=== PATIENT | male | born 1940 | race African-American/Black ===

== ENCOUNTER 2017-08-23 15:55 | Inpatient (IN) ==
[2017-08-23] MEDS ORDERED: SODIUM CHLORIDE 0.9% 1,000 ML IV STA (16:15)
[2017-08-23 16:23] LABS: Basophils % 0.4 % (0.0-0.8); Eosinophils # 0.1 10*3/uL (0.0-0.87); Eosinophils % 2.5 % (0.00-10.9); Hematocrit 39.4 VOL% (42.0-52.0); Hemoglobin 12.6 GM/DL (14.0-18.0); Immature Granulocytes % 0.5 %; Immature Granulocytes Absolute 0.03 #; Lymphocytes # 2.1 10*3/uL (1.4-4.0); Lymphocytes % 36.7 % (21.2-54.2); Mean Corpuscular Hemoglobin 25 PG (27-34); Mean Corpuscular Volume 79.3 FL (87-102); Monocytes # 0.6 10*3/uL (0.11-0.8); Monocytes % 10.8 % (1.7-12.7); Neutrophils # 2.8 10*3/uL (1.4-7.4); Neutrophils % 49.1 % (38.7-73.9); Platelet Count 132 T/CUMM (130-400); Red Blood Count 4.97 MC/CUMM (3.8-5.5); Red Cell Distribution Width 18.4 % (9.3-17.3); White Blood Count 5.6 T/CUMM (4-12)
[2017-08-23 16:35] LABS: Alanine Aminotransferase 12 U/L (16-61); Albumin 3.7 G/DL (3.4-5.0); Alkaline Phosphatase 94 U/L (45-117); Aspartate Amino Transferase 25 U/L (0-37); Bilirubin,Total < 0.39 MG/DL (0.2-1.0); Blood Urea Nitrogen 51 MG/DL (7-18); Calcium 8.7 MG/DL (8.5-10.1); Glucose 94 MG/DL (74-106); Osmolality,Calculated 288.7 MOS/KG (273-304); Potassium 5.3 MMOL/L (3.5-5.1); Sodium 138 MMOL/L (136-145); Total Protein 7.3 G/DL (6.4-8.3)
[2017-08-23 19:10] LABS: Apearance,Urine CLEAR (Clear); Bacteria,Urine Occasional /HPF (Few); Bilirubin,Urine Negative (Negative); Blood, Urine Negative (Negative); Glucose,Urine (UA) Negative (Negative); Hyaline Casts,Urine 1 /LPF (0-3); Ketones,Urine Negative (Negative); Mucus,Urine Occasional /LPF (Occasional); Nitrite,Urine Negative (Negative); Protein,Urine Negative; RBC,Urine <1 /HPF (0-4); Sperm,Urine Occasional /HPF (Negative); Urine Color Yellow (Yellow); Urine Specific Gravity 1.008 (1.001-1.035); Urine Urobilinogen < 2.0 EU/DL (0.2-1.0); WBC,Urine <1 /HPF (0-6)
[2017-08-23 19:19] LABS: Barbiturates Screen,Urine Negative (Negative); Benzodiazepines Screen,Urine Negative (Negative); Cannabinoid Screen,Urine Negative (Negative); Opiate Screen,Urine Positive (Negative); Phencyclidine Screen,Urine Negative (Negative)
[2017-08-23] MEDS ORDERED: SODIUM POLYSTYRENE SULFATE 15 GM/60 ML BOTTLE PO STA (19:45)
[2017-08-23] MEDS ORDERED: DEXTROSE 50% 25 GM/50 ML VIAL IV PRN (19:48)
[2017-08-23] MEDS ORDERED: GLUCAGON 1 MG VIAL IM PRN (19:48)
[2017-08-23] MEDS ORDERED: ALBUTEROL/IPRATROPIUM 3 ML NEB RESP TX PRN (19:50)
[2017-08-23] MEDS: INSULIN LISPRO 100 UNIT/ML SUBCUT SCH (21:47)
[2017-08-23] MEDS: ATORVASTATIN 40 MG TABLET PO SCH (22:12)
[2017-08-23] MEDS: TAMSULOSIN 0.4 MG CAPSULE PO SCH (22:12)
[2017-08-23] MEDS: DONEPEZIL 10 MG TABLET PO SCH (22:12)
[2017-08-23] MEDS: HEPARIN 5,000 UNIT/1 ML VIAL SUBCUT SCH (22:12)
[2017-08-23] MEDS: SODIUM CHLORIDE 0.9% 1,000 ML IV SCH (22:13)
[2017-08-24] MEDS: SODIUM CHLORIDE 0.9% 1,000 ML IV SCH ×2 (05:08→06:34)
[2017-08-24] MEDS: HEPARIN 5,000 UNIT/1 ML VIAL SUBCUT SCH ×4 (06:35→21:04)
[2017-08-24 08:24] LABS: Basophils % 0.4 % (0.0-0.8); Eosinophils # 0.2 10*3/uL (0.0-0.87); Eosinophils % 3.2 % (0.00-10.9); Hematocrit 35.8 VOL% (42.0-52.0); Hemoglobin 11.7 GM/DL (14.0-18.0); Immature Granulocytes % 0.4 %; Immature Granulocytes Absolute 0.02 #; Lymphocytes % 39.3 % (21.2-54.2); Mean Corpuscular HGB Conc 32.7 GM/DL (32-36); Mean Corpuscular Hemoglobin 25 PG (27-34); Monocytes # 0.5 10*3/uL (0.11-0.8); Monocytes % 10.3 % (1.7-12.7); Neutrophils # 2.3 10*3/uL (1.4-7.4); Neutrophils % 46.4 % (38.7-73.9); Platelet Count 130 T/CUMM (130-400); Red Blood Count 4.65 MC/CUMM (3.8-5.5); Red Cell Distribution Width 18.6 % (9.3-17.3)
[2017-08-24 08:49] LABS: Calcium 8.2 MG/DL (8.5-10.1); Ferritin 134.7 ng/ml (26-388); Osmolality,Calculated 292.3 MOS/KG (273-304); Potassium 5.3 MMOL/L (3.5-5.1)
[2017-08-24] MEDS: PANTOPRAZOLE 40 MG TABLET PO SCH (09:31)
[2017-08-24] MEDS: INSULIN LISPRO 100 UNIT/ML SUBCUT SCH ×4 (09:31→21:04)
[2017-08-24] MEDS: CLOPIDOGREL 75 MG TABLET PO SCH (09:31)
[2017-08-24] MEDS ORDERED: DEXTROSE 5% NACL 0.45% 1,000 ML IV SCH (12:00)
[2017-08-24] MEDS ORDERED: ERGOCALCIFEROL 50,000 UNIT CAPSULE PO SCH (12:00)
[2017-08-24] MEDS: ESCITALOPRAM 10 MG TABLET PO SCH (13:51)
[2017-08-24] MEDS: TAMSULOSIN 0.4 MG CAPSULE PO SCH (21:04)
[2017-08-24] MEDS: ATORVASTATIN 40 MG TABLET PO SCH (21:04)
[2017-08-24] MEDS: DONEPEZIL 10 MG TABLET PO SCH (21:04)
[2017-08-25 05:10] LABS: Basophils % 0.4 % (0.0-0.8); Eosinophils # 0.1 10*3/uL (0.0-0.87); Eosinophils % 2.5 % (0.00-10.9); Hematocrit 36.5 VOL% (42.0-52.0); Hemoglobin 11.9 GM/DL (14.0-18.0); Immature Granulocytes % 0.2 %; Immature Granulocytes Absolute 0.01 #; Lymphocytes # 2.1 10*3/uL (1.4-4.0); Lymphocytes % 37.1 % (21.2-54.2); Mean Corpuscular HGB Conc 32.6 GM/DL (32-36); Mean Corpuscular Hemoglobin 25 PG (27-34); Mean Corpuscular Volume 76.5 FL (87-102); Monocytes # 0.5 10*3/uL (0.11-0.8); Monocytes % 9.1 % (1.7-12.7); Neutrophils # 2.9 10*3/uL (1.4-7.4); Neutrophils % 50.7 % (38.7-73.9); Platelet Count 128 T/CUMM (130-400); Red Blood Count 4.77 MC/CUMM (3.8-5.5); Red Cell Distribution Width 18.5 % (9.3-17.3); White Blood Count 5.6 T/CUMM (4-12)
[2017-08-25 05:37] LABS: Albumin 3.3 G/DL (3.4-5.0); Bilirubin,Total 0.5 MG/DL (0.2-1.0); Calcium 8.6 MG/DL (8.5-10.1); Giant Platelets Few; Hypochromasia Slight; Osmolality,Calculated 294.7 MOS/KG (273-304); Ovalocytes Slight; Total Protein 6.1 G/DL (6.4-8.3)
[2017-08-25 05:38] LABS: Platelet Estimate Decreased
[2017-08-25] MEDS: HEPARIN 5,000 UNIT/1 ML VIAL SUBCUT SCH ×2 (05:46→13:42)
[2017-08-25] MEDS: INSULIN LISPRO 100 UNIT/ML SUBCUT SCH ×3 (08:08→17:14)
[2017-08-25] MEDS: CLOPIDOGREL 75 MG TABLET PO SCH (08:57)
[2017-08-25] MEDS: ESCITALOPRAM 10 MG TABLET PO SCH (08:57)
[2017-08-25] MEDS: PANTOPRAZOLE 40 MG TABLET PO SCH (08:57)
[2017-08-25 17:34] VITALS: BP 160/78
== END 2017-08-25 17:25 | disposition home health service (06) | DRG 683 ==
LOC: EDBD → EDUNIT# → N.ED 15:55 → SUATTDRO 19:03 → N.EDINP 19:03 → N.TELES 19:40
PROVIDERS: ADMIT Internal Medicine; ATTEND Internal Medicine

== ENCOUNTER 2019-02-11 18:58 | Inpatient (IN) ==
[2019-02-11 19:51] LABS: Basophils % 0.2 % (0.0-0.8); Eosinophils # 0.2 10*3/uL (0.0-0.87); Eosinophils % 2.3 % (0.00-10.9); Hematocrit 30.4 VOL% (42.0-52.0); Hemoglobin 9.7 GM/DL (14.0-18.0); Immature Granulocytes % 0.6 %; Immature Granulocytes Absolute 0.05 #; Lymphocytes # 2.1 10*3/uL (1.4-4.0); Lymphocytes % 23.6 % (21.2-54.2); Mean Corpuscular HGB Conc 31.9 GM/DL (32-36); Mean Corpuscular Volume 80.6 FL (87-102); Mean Platelet Volume 12.1 FL (9.6-12.0); Monocytes % 8.8 % (1.7-12.7); Neutrophils % 64.5 % (38.7-73.9); Platelet Count 170 T/CUMM (130-400); Red Blood Count 3.77 MC/CUMM (3.8-5.5); Red Cell Distribution Width 15.8 % (9.3-17.3); White Blood Count 8.9 T/CUMM (4-12)
[2019-02-11 20:21] LABS: Alanine Aminotransferase 15 U/L (16-61); Albumin 2.9 G/DL (3.4-5.0); Alkaline Phosphatase 89 U/L (45-117); Aspartate Amino Transferase 31 U/L (0-37); Bilirubin,Total < 0.39 MG/DL (0.2-1.0); Blood Urea Nitrogen 51 MG/DL (7-18); Calcium 7.3 MG/DL (8.5-10.1); Estimated Glom Filtration Rate 21 ML/MIN; Glucose 133 MG/DL (74-106); Osmolality,Calculated 296.3 MOS/KG (273-304); Total Protein 5.9 G/DL (6.4-8.3)
[2019-02-11] MEDS ORDERED: SODIUM CHLORIDE 0.9% 1,000 ML IV STA (20:52)
[2019-02-11 21:06] LABS: Apearance,Urine CLEAR (Clear); Bilirubin,Urine Negative (Negative); Blood, Urine Small mg/dL (Negative); Glucose,Urine (UA) Negative (Negative); Ketones,Urine Negative (Negative); Mucus,Urine Occasional /LPF (Occasional); Nitrite,Urine Negative (Negative); Protein,Urine 100 MG/DL; RBC,Urine 2 /HPF (0-4); Urine Color Yellow (Yellow); Urine Specific Gravity 1.011 (1.001-1.035); Urine Urobilinogen < 2.0 EU/DL (0.2-1.0); WBC,Urine 2 /HPF (0-6)
[2019-02-11] MEDS ORDERED: ONDANSETRON 4 MG/2 ML VIAL IV PRN (23:39)
[2019-02-11] MEDS ORDERED: GLUCAGON 1 MG VIAL IM PRN (23:39)
[2019-02-11] MEDS ORDERED: ATORVASTATIN 10 MG TABLET PO SCH (23:39)
[2019-02-11] MEDS ORDERED: MORPHINE 4 MG/1 ML VIAL IV PRN (23:39)
[2019-02-11] MEDS ORDERED: DEXTROSE 50% 25 GM/50 ML VIAL IV PRN (23:39)
[2019-02-11] MEDS ORDERED: NITROGLYCERIN SL 0.4 MG TABLET SL PRN (23:39)
[2019-02-11] MEDS ORDERED: DOCUSATE SODIUM 100 MG CAPSULE PO PRN (23:39)
[2019-02-11] MEDS ORDERED: ACETAMINOPHEN 325 MG TABLET PO PRN (23:39)
[2019-02-11] MEDS: INSULIN LISPRO 100 UNIT/ML SUBCUT SCH (23:55)
[2019-02-12] MEDS: DONEPEZIL 10 MG TABLET PO SCH ×2 (00:01→20:13)
[2019-02-12] MEDS: SODIUM CHLORIDE 0.9% 1,000 ML IV SCH ×2 (00:01→15:33)
[2019-02-12] MEDS: ALBUTEROL/IPRATROPIUM 3 ML NEB RESP TX SCH ×4 (00:43→20:49)
[2019-02-12 00:51] LABS: Risk Ratio 2.74; VLDL CHOLESTEROL 44.4 MG/DL
[2019-02-12 06:00] LABS: Basophils % 0.3 % (0.0-0.8); Eosinophils # 0.3 10*3/uL (0.0-0.87); Eosinophils % 3.3 % (0.00-10.9); Hematocrit 31.1 VOL% (42.0-52.0); Hemoglobin 9.5 GM/DL (14.0-18.0); Immature Granulocytes % 0.9 %; Immature Granulocytes Absolute 0.08 #; Lymphocytes # 1.9 10*3/uL (1.4-4.0); Lymphocytes % 20.9 % (21.2-54.2); Mean Corpuscular HGB Conc 30.5 GM/DL (32-36); Mean Corpuscular Volume 82.5 FL (87-102); Mean Platelet Volume 12.3 FL (9.6-12.0); Monocytes % 10.6 % (1.7-12.7); Platelet Count 164 T/CUMM (130-400); Red Blood Count 3.77 MC/CUMM (3.8-5.5); Red Cell Distribution Width 15.9 % (9.3-17.3)
[2019-02-12 06:12] LABS: % Iron Saturation 14.2 % (18-50); Calcium 7.8 MG/DL (8.5-10.1); Ferritin 150.8 ng/ml (26-388); Osmolality,Calculated 304.6 MOS/KG (273-304)
[2019-02-12 06:18] LABS: Folate 16.1 NG/ML (5.4-24.0); Vitamin B12 1294 PG/ML (211-911)
[2019-02-12 07:16] LABS: Hypochromasia 1+; Microcytosis 1+; Ovalocytes Slight; Polychromasia Slight
[2019-02-12 07:17] LABS: Platelet Estimate Adequate; Tear Drop Cells Slight
[2019-02-12 07:32] LABS: Sedimentation Rate-Westergren 55 MM/HR (0-20)
[2019-02-12] MEDS: POTASSIUM CHLORIDE 10 MEQ TABLET PO SCH (08:41)
[2019-02-12] MEDS: METOPROLOL SUCCINATE XL 100 MG TABLET PO SCH (08:41)
[2019-02-12] MEDS: CLOPIDOGREL 75 MG TABLET PO SCH (08:42)
[2019-02-12] MEDS: COLCHICINE 0.6 MG CAPSULE PO SCH (08:42)
[2019-02-12] MEDS: amLODIPine 10 MG TABLET PO SCH (08:42)
[2019-02-12] MEDS: predniSONE 20 MG TABLET PO SCH (08:42)
[2019-02-12] MEDS: PANTOPRAZOLE 40 MG TABLET PO SCH ×2 (08:42→20:12)
[2019-02-12] MEDS: ISOSORBIDE MONONITRATE 60 MG TABLET PO SCH (08:42)
[2019-02-12] MEDS: FEBUXOSTAT 80 MG TABLET PO SCH (08:43)
[2019-02-12] MEDS: MAGNESIUM OXIDE 400 MG TABLET PO SCH (08:43)
[2019-02-12] MEDS: INSULIN LISPRO 100 UNIT/ML SUBCUT SCH ×4 (08:45→20:55)
[2019-02-12] MEDS ORDERED: Liraglutide [Victoza 3-Pak] 1.8 MG SUBCUT SCH (09:00)
[2019-02-12] MEDS: TAMSULOSIN 0.4 MG CAPSULE PO SCH (09:49)
[2019-02-12 09:52] LABS: Hemoglobin A2 (Alkaline) 2.9 % (1.5-3.5)
[2019-02-12 10:40] LABS: Hemoglobin A1 (Alkaline) 65.6 % (96.5-98.5)
[2019-02-12 10:41] LABS: Hemoglobin S (Alkaline) 31.5 %
[2019-02-12] MEDS: ASPIRIN EC 81 MG TABLET PO SCH (10:43)
[2019-02-12] MEDS ORDERED: hydrALAZINE 20 MG/1 ML VIAL IV PRN (13:18)
[2019-02-12] MEDS: cefTRIAXone 1,000 MG in SYRINGE 1 EACH IV SCH (14:28)
[2019-02-12] MEDS: FERROUS SULFATE 325 MG TABLET PO SCH ×2 (14:28→20:13)
[2019-02-12] MEDS: SODIUM CHLORIDE 0.45% 1,000 ML IV SCH (14:35)
[2019-02-12] MEDS ORDERED: hydrALAZINE 25 MG TABLET PO SCH (15:00)
[2019-02-12] MEDS ORDERED: NICOTINE 14 MG/24 HR PATCH TRANSDERM PRN (18:31)
[2019-02-12] MEDS: CITALOPRAM 20 MG TABLET PO SCH ×2 (20:12)
[2019-02-12] MEDS: OMEGA 3 ACID ETHYL ESTERS 1 GM CAPSULE PO SCH (20:13)
[2019-02-12] MEDS: ATORVASTATIN 40 MG TABLET PO SCH (20:13)
[2019-02-13] MEDS: SODIUM CHLORIDE 0.45% 1,000 ML IV SCH ×2 (03:50→13:22)
[2019-02-13 04:59] LABS: Basophils % 0.1 % (0.0-0.8); Eosinophils # 0.1 10*3/uL (0.0-0.87); Eosinophils % 1.2 % (0.00-10.9); Hematocrit 30.5 VOL% (42.0-52.0); Hemoglobin 9.6 GM/DL (14.0-18.0); Immature Granulocytes % 0.6 %; Immature Granulocytes Absolute 0.06 #; Lymphocytes # 1.5 10*3/uL (1.4-4.0); Lymphocytes % 15.5 % (21.2-54.2); Mean Corpuscular HGB Conc 31.5 GM/DL (32-36); Mean Corpuscular Volume 80.7 FL (87-102); Mean Platelet Volume 12.4 FL (9.6-12.0); Monocytes % 8.1 % (1.7-12.7); Neutrophils % 74.5 % (38.7-73.9); Platelet Count 171 T/CUMM (130-400); Red Blood Count 3.78 MC/CUMM (3.8-5.5); Red Cell Distribution Width 15.9 % (9.3-17.3)
[2019-02-13 05:30] LABS: Calcium 7.4 MG/DL (8.5-10.1); Osmolality,Calculated 294.3 MOS/KG (273-304)
[2019-02-13] MEDS: ALBUTEROL/IPRATROPIUM 3 ML NEB RESP TX SCH ×4 (07:32→19:30)
[2019-02-13] MEDS ORDERED: AZITHROMYCIN 250 MG TABLET PO SCH (09:00)
[2019-02-13] MEDS: COLCHICINE 0.6 MG CAPSULE PO SCH (09:55)
[2019-02-13] MEDS: ISOSORBIDE MONONITRATE 60 MG TABLET PO SCH (09:55)
[2019-02-13] MEDS: METOPROLOL SUCCINATE XL 100 MG TABLET PO SCH (09:55)
[2019-02-13] MEDS: CLOPIDOGREL 75 MG TABLET PO SCH (09:55)
[2019-02-13] MEDS: MAGNESIUM OXIDE 400 MG TABLET PO SCH (09:55)
[2019-02-13] MEDS: POTASSIUM CHLORIDE 10 MEQ TABLET PO SCH (09:56)
[2019-02-13] MEDS: predniSONE 20 MG TABLET PO SCH (09:56)
[2019-02-13] MEDS: TAMSULOSIN 0.4 MG CAPSULE PO SCH (09:56)
[2019-02-13] MEDS: OMEGA 3 ACID ETHYL ESTERS 1 GM CAPSULE PO SCH ×2 (09:56→21:00)
[2019-02-13] MEDS: FEBUXOSTAT 80 MG TABLET PO SCH (09:56)
[2019-02-13] MEDS: ASPIRIN EC 81 MG TABLET PO SCH (09:56)
[2019-02-13] MEDS: PANTOPRAZOLE 40 MG TABLET PO SCH ×2 (09:56→21:01)
[2019-02-13] MEDS: FERROUS SULFATE 325 MG TABLET PO SCH ×2 (09:56→21:01)
[2019-02-13] MEDS: amLODIPine 10 MG TABLET PO SCH (09:57)
[2019-02-13] MEDS: INSULIN LISPRO 100 UNIT/ML SUBCUT SCH ×4 (10:03→21:17)
[2019-02-13] MEDS: SODIUM CHLORIDE 0.9% 1,000 ML IV SCH ×2 (11:52→21:32)
[2019-02-13] MEDS: cefTRIAXone 1,000 MG in SYRINGE 1 EACH IV SCH (12:43)
[2019-02-13] MEDS: ISOSORBIDE DINITRATE 20 MG TABLET PO SCH ×2 (15:28→21:00)
[2019-02-13] MEDS ORDERED: carvediloL 6.25 MG TABLET PO SCH (17:00)
[2019-02-13] MEDS: NEBIVOLOL 5 MG TABLET PO SCH (21:01)
[2019-02-13] MEDS: DONEPEZIL 10 MG TABLET PO SCH (21:01)
[2019-02-13] MEDS: CITALOPRAM 20 MG TABLET PO SCH (21:01)
[2019-02-13] MEDS: ATORVASTATIN 40 MG TABLET PO SCH (21:01)
[2019-02-13] MEDS: ALBUTEROL 2.5 MG/3 ML NEB RESP TX PRN (22:23)
[2019-02-14] MEDS: ALBUTEROL/IPRATROPIUM 3 ML NEB RESP TX SCH ×5 (01:15→19:35)
[2019-02-14 06:19] LABS: Calcium 7.4 MG/DL (8.5-10.1); Osmolality,Calculated 301.6 MOS/KG (273-304)
[2019-02-14] MEDS: INSULIN LISPRO 100 UNIT/ML SUBCUT SCH ×4 (08:03→20:14)
[2019-02-14] MEDS: OMEGA 3 ACID ETHYL ESTERS 1 GM CAPSULE PO SCH ×2 (09:17→20:13)
[2019-02-14] MEDS: COLCHICINE 0.6 MG CAPSULE PO SCH (09:17)
[2019-02-14] MEDS: CLOPIDOGREL 75 MG TABLET PO SCH (09:17)
[2019-02-14] MEDS: MAGNESIUM OXIDE 400 MG TABLET PO SCH (09:17)
[2019-02-14] MEDS: FERROUS SULFATE 325 MG TABLET PO SCH ×2 (09:18→20:13)
[2019-02-14] MEDS: AZITHROMYCIN 250 MG TABLET PO SCH (09:18)
[2019-02-14] MEDS: TAMSULOSIN 0.4 MG CAPSULE PO SCH (09:18)
[2019-02-14] MEDS: FEBUXOSTAT 80 MG TABLET PO SCH (09:18)
[2019-02-14] MEDS: ISOSORBIDE DINITRATE 20 MG TABLET PO SCH ×3 (09:18→20:13)
[2019-02-14] MEDS: predniSONE 20 MG TABLET PO SCH (09:18)
[2019-02-14] MEDS: POTASSIUM CHLORIDE 10 MEQ TABLET PO SCH (09:19)
[2019-02-14] MEDS: ASPIRIN EC 81 MG TABLET PO SCH (09:19)
[2019-02-14] MEDS: PANTOPRAZOLE 40 MG TABLET PO SCH ×2 (09:19→20:14)
[2019-02-14] MEDS: NEBIVOLOL 5 MG TABLET PO SCH ×2 (09:19→20:14)
[2019-02-14] MEDS: amLODIPine 10 MG TABLET PO SCH (09:19)
[2019-02-14] MEDS: CEFUROXIME 250 MG TABLET PO SCH ×2 (12:12→20:14)
[2019-02-14] MEDS: ALBUTEROL 2.5 MG/3 ML NEB RESP TX PRN (15:44)
[2019-02-14] MEDS: SODIUM CHLORIDE 0.9% 1,000 ML IV SCH (19:08)
[2019-02-14] MEDS: CITALOPRAM 20 MG TABLET PO SCH (20:13)
[2019-02-14] MEDS: ATORVASTATIN 40 MG TABLET PO SCH (20:13)
[2019-02-14] MEDS: DONEPEZIL 10 MG TABLET PO SCH (20:14)
[2019-02-14] MEDS: SODIUM CHLORIDE 0.45% 1,000 ML IV SCH (20:18)
[2019-02-15] MEDS: ALBUTEROL/IPRATROPIUM 3 ML NEB RESP TX SCH ×4 (01:03→19:59)
[2019-02-15 05:11] LABS: Eosinophils % 0.3 % (0.00-10.9); Hematocrit 26.9 VOL% (42.0-52.0); Hemoglobin 8.5 GM/DL (14.0-18.0); Immature Granulocytes % 0.7 %; Immature Granulocytes Absolute 0.06 #; Lymphocytes # 1.6 10*3/uL (1.4-4.0); Lymphocytes % 17.5 % (21.2-54.2); Mean Corpuscular HGB Conc 31.6 GM/DL (32-36); Mean Corpuscular Volume 79.6 FL (87-102); Mean Platelet Volume 12.1 FL (9.6-12.0); Monocytes % 10.8 % (1.7-12.7); Neutrophils % 70.7 % (38.7-73.9); Platelet Count 157 T/CUMM (130-400); Red Blood Count 3.38 MC/CUMM (3.8-5.5); Red Cell Distribution Width 15.9 % (9.3-17.3); White Blood Count 9.1 T/CUMM (4-12)
[2019-02-15 05:40] LABS: Calcium 7.4 MG/DL (8.5-10.1); Osmolality,Calculated 308.1 MOS/KG (273-304)
[2019-02-15] MEDS ORDERED: DEXTROSE 50% 25 GM/50 ML VIAL IV PRN (06:43)
[2019-02-15] MEDS ORDERED: DEXTROSE 10% 250 ML IV PRN (06:47)
[2019-02-15] MEDS: INSULIN LISPRO 100 UNIT/ML SUBCUT SCH ×4 (07:28→21:53)
[2019-02-15] MEDS: COLCHICINE 0.6 MG CAPSULE PO SCH (08:52)
[2019-02-15] MEDS: ASPIRIN EC 81 MG TABLET PO SCH (08:52)
[2019-02-15] MEDS: FEBUXOSTAT 80 MG TABLET PO SCH (08:52)
[2019-02-15] MEDS: CEFUROXIME 250 MG TABLET PO SCH ×2 (08:52→21:54)
[2019-02-15] MEDS: PANTOPRAZOLE 40 MG TABLET PO SCH ×2 (08:52→21:55)
[2019-02-15] MEDS: amLODIPine 10 MG TABLET PO SCH (08:52)
[2019-02-15] MEDS: CLOPIDOGREL 75 MG TABLET PO SCH (08:52)
[2019-02-15] MEDS: OMEGA 3 ACID ETHYL ESTERS 1 GM CAPSULE PO SCH ×2 (08:53→21:55)
[2019-02-15] MEDS: NEBIVOLOL 5 MG TABLET PO SCH ×2 (08:53→21:56)
[2019-02-15] MEDS: TAMSULOSIN 0.4 MG CAPSULE PO SCH (08:53)
[2019-02-15] MEDS: AZITHROMYCIN 250 MG TABLET PO SCH (08:53)
[2019-02-15] MEDS: ISOSORBIDE DINITRATE 20 MG TABLET PO SCH ×3 (08:53→21:54)
[2019-02-15] MEDS: MAGNESIUM OXIDE 400 MG TABLET PO SCH (08:53)
[2019-02-15] MEDS: predniSONE 20 MG TABLET PO SCH (08:53)
[2019-02-15] MEDS: FERROUS SULFATE 325 MG TABLET PO SCH ×2 (08:53→21:55)
[2019-02-15] MEDS: POTASSIUM CHLORIDE 10 MEQ TABLET PO SCH (08:53)
[2019-02-15] MEDS: SODIUM CHLORIDE 0.45% 1,000 ML IV SCH (16:11)
[2019-02-15] MEDS: ATORVASTATIN 40 MG TABLET PO SCH (21:54)
[2019-02-15] MEDS: DONEPEZIL 10 MG TABLET PO SCH (21:55)
[2019-02-15] MEDS: CITALOPRAM 20 MG TABLET PO SCH (21:57)
[2019-02-16] MEDS: ALBUTEROL/IPRATROPIUM 3 ML NEB RESP TX SCH ×2 (00:36→07:08)
[2019-02-16] MEDS: INSULIN LISPRO 100 UNIT/ML SUBCUT SCH ×2 (07:01→11:27)
[2019-02-16] MEDS: POTASSIUM CHLORIDE 10 MEQ TABLET PO SCH (09:12)
[2019-02-16] MEDS: MAGNESIUM OXIDE 400 MG TABLET PO SCH (09:12)
[2019-02-16] MEDS: OMEGA 3 ACID ETHYL ESTERS 1 GM CAPSULE PO SCH (09:12)
[2019-02-16] MEDS: FEBUXOSTAT 80 MG TABLET PO SCH (09:12)
[2019-02-16] MEDS: COLCHICINE 0.6 MG CAPSULE PO SCH (09:12)
[2019-02-16] MEDS: amLODIPine 10 MG TABLET PO SCH (09:13)
[2019-02-16] MEDS: TAMSULOSIN 0.4 MG CAPSULE PO SCH (09:13)
[2019-02-16] MEDS: AZITHROMYCIN 250 MG TABLET PO SCH (09:13)
[2019-02-16] MEDS: ISOSORBIDE DINITRATE 20 MG TABLET PO SCH (09:13)
[2019-02-16] MEDS: PANTOPRAZOLE 40 MG TABLET PO SCH (09:13)
[2019-02-16] MEDS: predniSONE 20 MG TABLET PO SCH (09:13)
[2019-02-16] MEDS: CEFUROXIME 250 MG TABLET PO SCH (09:13)
[2019-02-16] MEDS: NEBIVOLOL 5 MG TABLET PO SCH (09:14)
[2019-02-16] MEDS: ASPIRIN EC 81 MG TABLET PO SCH (09:14)
[2019-02-16] MEDS: FERROUS SULFATE 325 MG TABLET PO SCH (09:18)
[2019-02-16] MEDS ORDERED: FUROSEMIDE 20 MG/2 ML VIAL IV ONE (09:49)
[2019-02-16] MEDS ORDERED: FUROSEMIDE 40 MG TABLET PO ONE (11:00)
[2019-02-16 11:38] VITALS: BP 152/70
== END 2019-02-16 12:12 | disposition home health service (06) | DRG 191 ==
LOC: N.ED 18:58 → N.EDINP 22:15 → SUATTDRO 22:15 → N.2E 22:30
PROVIDERS: ADMIT Hospitalist; ATTEND Internal Medicine Nephrology

== ENCOUNTER 2019-03-02 21:11 | Inpatient (IN) ==
[2019-03-02] MEDS ORDERED: ONDANSETRON 4 MG/2 ML VIAL IV STA (22:04)
[2019-03-02 22:38] LABS: Basophils % 0.6 % (0.0-0.8); Eosinophils # 0.3 10*3/uL (0.0-0.87); Eosinophils % 6.5 % (0.00-10.9); Hematocrit 30.4 VOL% (42.0-52.0); Hemoglobin 9.3 GM/DL (14.0-18.0); Immature Granulocytes % 0.4 %; Immature Granulocytes Absolute 0.02 #; Lymphocytes # 1.4 10*3/uL (1.4-4.0); Lymphocytes % 28.6 % (21.2-54.2); Mean Corpuscular HGB Conc 30.6 GM/DL (32-36); Mean Corpuscular Volume 82.6 FL (87-102); Mean Platelet Volume 11.9 FL (9.6-12.0); Monocytes % 9.5 % (1.7-12.7); Neutrophils % 54.4 % (38.7-73.9); Platelet Count 162 T/CUMM (130-400); Red Blood Count 3.68 MC/CUMM (3.8-5.5); Red Cell Distribution Width 15.5 % (9.3-17.3); White Blood Count 4.8 T/CUMM (4-12)
[2019-03-02 22:48] LABS: PT Patient Result 10.5 SECS (9.6-12.2); Partial Thromboplastin Time 25.7 SECS (20.8-36.0)
[2019-03-02 23:00] LABS: Apearance,Urine CLEAR (Clear); Bilirubin,Urine Negative (Negative); Blood, Urine Small mg/dL (Negative); Glucose,Urine (UA) 50 mg/dL (Negative); Hyaline Casts,Urine 1 /LPF (0-3); Ketones,Urine Negative (Negative); Nitrite,Urine Negative (Negative); Protein,Urine >=500 MG/DL; RBC,Urine 4 /HPF (0-4); Sperm,Urine Occasional /HPF (Negative); Squamous Epithelial Cell,Urine Occasional /HPF (0-10); Urine Color Yellow (Yellow); Urine Specific Gravity 1.012 (1.001-1.035); Urine Urobilinogen < 2.0 EU/DL (0.2-1.0); WBC,Urine 2 /HPF (0-6)
[2019-03-02 23:06] LABS: Alanine Aminotransferase 12 U/L (16-61); Albumin 3.1 G/DL (3.4-5.0); Alkaline Phosphatase 117 U/L (45-117); Aspartate Amino Transferase 31 U/L (0-37); Bilirubin,Total < 0.39 MG/DL (0.2-1.0); Blood Urea Nitrogen 28 MG/DL (7-18); Calcium 7.6 MG/DL (8.5-10.1); Estimated Glom Filtration Rate 21 ML/MIN; Glucose 103 MG/DL (74-106); Total Protein 6.3 G/DL (6.4-8.3)
[2019-03-02] MEDS ORDERED: methylPREDNISolone SOD SUC 125 MG/2 ML VIAL IV STA (23:32)
[2019-03-02] MEDS ORDERED: ALBUTEROL/IPRATROPIUM 3 ML NEB RESP TX STA (23:32)
[2019-03-02] MEDS ORDERED: ONDANSETRON 4 MG/2 ML VIAL IV PRN (23:38)
[2019-03-02] MEDS ORDERED: NICOTINE 21 MG/24 HR PATCH TRANSDERM PRN (23:38)
[2019-03-02] MEDS ORDERED: MORPHINE 4 MG/1 ML VIAL IV PRN (23:38)
[2019-03-03 00:36] LABS: Risk Ratio 4.05; Thyroid Stimulating Hormone 2.4 uIU/ml (0.358-3.74)
[2019-03-03] MEDS: SODIUM CHLORIDE 0.9% 1,000 ML IV SCH ×2 (01:15→11:27)
[2019-03-03 01:30] LABS: Barbiturates Screen,Urine Negative (Negative); Benzodiazepines Screen,Urine Negative (Negative); Cannabinoid Screen,Urine Negative (Negative); Opiate Screen,Urine Positive (Negative); Phencyclidine Screen,Urine Negative (Negative)
[2019-03-03] MEDS ORDERED: ASPIRIN 300 MG SUPP RECTAL ONE ×2 (03:29→08:00)
[2019-03-03] MEDS ORDERED: NITROGLYCERIN SL 0.4 MG TABLET SL PRN (09:38)
[2019-03-03] MEDS ORDERED: MAGNESIUM SULF RIDER 2 GM in PREMIX 1 EACH IV ONE (09:58)
[2019-03-03] MEDS: FUROSEMIDE 40 MG TABLET PO SCH (11:24)
[2019-03-03] MEDS: amLODIPine 10 MG TABLET PO SCH (11:24)
[2019-03-03] MEDS: ENOXAPARIN 30 MG/0.3 ML SYRINGE SUBCUT SCH (11:27)
[2019-03-03] MEDS: INSULIN LISPRO 100 UNIT/ML SUBCUT SCH ×3 (18:38→21:24)
[2019-03-03] MEDS ORDERED: ATORVASTATIN 10 MG TABLET PO SCH (21:00)
[2019-03-03] MEDS: DONEPEZIL 10 MG TABLET PO SCH (21:19)
[2019-03-03] MEDS: ATORVASTATIN 10 MG TABLET PO SCH (21:19)
[2019-03-03] MEDS: BRIMONIDINE 0.1% OPH SOLN 5 ML BOTTLE BOTH EYES SCH (21:21)
[2019-03-04] MEDS: SODIUM CHLORIDE 0.9% 1,000 ML IV SCH ×2 (00:16→14:10)
[2019-03-04 05:18] LABS: Basophils % 0.3 % (0.0-0.8); Eosinophils % 0.5 % (0.00-10.9); Hematocrit 30.6 VOL% (42.0-52.0); Hemoglobin 9.6 GM/DL (14.0-18.0); Immature Granulocytes % 0.5 %; Immature Granulocytes Absolute 0.03 #; Lymphocytes # 1.4 10*3/uL (1.4-4.0); Lymphocytes % 23.1 % (21.2-54.2); Mean Corpuscular HGB Conc 31.4 GM/DL (32-36); Mean Corpuscular Volume 79.9 FL (87-102); Mean Platelet Volume 11.1 FL (9.6-12.0); Monocytes % 8.7 % (1.7-12.7); Neutrophils % 66.9 % (38.7-73.9); Platelet Count 199 T/CUMM (130-400); Red Blood Count 3.83 MC/CUMM (3.8-5.5); Red Cell Distribution Width 15.7 % (9.3-17.3); White Blood Count 6.2 T/CUMM (4-12)
[2019-03-04 05:34] LABS: Calcium 7.9 MG/DL (8.5-10.1); Osmolality,Calculated 296.6 MOS/KG (273-304)
[2019-03-04 05:50] LABS: Bilirubin,Total 0.4 MG/DL (0.2-1.0); Osmolality,Calculated 294.7 MOS/KG (273-304); Total Protein 6.7 G/DL (6.4-8.3)
[2019-03-04 06:23] LABS: Lymphocytes 25 % (20-55); Platelet Estimate Adequate; Segmented Neutrophils 68 % (50-85); Total Cells Counted 100
[2019-03-04 06:24] LABS: Hypochromasia 1+; Ovalocytes Slight
[2019-03-04] MEDS: BRIMONIDINE 0.1% OPH SOLN 5 ML BOTTLE BOTH EYES SCH ×2 (09:09→20:19)
[2019-03-04] MEDS: ASPIRIN EC 81 MG TABLET PO SCH (09:30)
[2019-03-04] MEDS: CLOPIDOGREL 75 MG TABLET PO SCH (09:30)
[2019-03-04] MEDS: INSULIN LISPRO 100 UNIT/ML SUBCUT SCH ×3 (09:30→21:36)
[2019-03-04] MEDS: ENOXAPARIN 30 MG/0.3 ML SYRINGE SUBCUT SCH (11:25)
[2019-03-04] MEDS: BUDESONIDE 0.5 MG/2 ML NEB RESP TX SCH ×2 (13:04→19:25)
[2019-03-04] MEDS: CLINDAMYCIN INJ 300 MG in PREMIX 1 EACH IV SCH ×2 (14:10→20:20)
[2019-03-04] MEDS: SCOPOLAMINE 1.5 MG PATCH TRANSDERM SCH (14:11)
[2019-03-04] MEDS: ASPIRIN 300 MG SUPP RECTAL SCH (18:56)
[2019-03-04] MEDS: ATORVASTATIN 10 MG TABLET PO SCH (20:24)
[2019-03-04] MEDS: DONEPEZIL 10 MG TABLET PO SCH (20:24)
[2019-03-05] MEDS: SODIUM CHLORIDE 0.9% 1,000 ML IV SCH (04:34)
[2019-03-05] MEDS: CLINDAMYCIN INJ 300 MG in PREMIX 1 EACH IV SCH ×3 (05:42→23:26)
[2019-03-05] MEDS ORDERED: ceFAZolin 1,000 MG in SYRINGE 1 EACH IV ONE (06:00)
[2019-03-05 06:53] LABS: Basophils % 0.2 % (0.0-0.8); Eosinophils # 0.2 10*3/uL (0.0-0.87); Eosinophils % 2.9 % (0.00-10.9); Immature Granulocytes % 0.5 %; Immature Granulocytes Absolute 0.03 #; Lymphocytes # 1.2 10*3/uL (1.4-4.0); Lymphocytes % 22.3 % (21.2-54.2); Mean Corpuscular HGB Conc 30.3 GM/DL (32-36); Mean Corpuscular Volume 82.3 FL (87-102); Mean Platelet Volume 11.2 FL (9.6-12.0); Monocytes % 7.3 % (1.7-12.7); Neutrophils % 66.8 % (38.7-73.9); Platelet Count 213 T/CUMM (130-400); Red Blood Count 4.01 MC/CUMM (3.8-5.5); Red Cell Distribution Width 15.7 % (9.3-17.3); White Blood Count 5.5 T/CUMM (4-12)
[2019-03-05] MEDS: BUDESONIDE 0.5 MG/2 ML NEB RESP TX SCH ×2 (07:15→19:50)
[2019-03-05] MEDS: ALBUTEROL 2.5 MG/3 ML NEB RESP TX PRN (07:15)
[2019-03-05 07:18] LABS: Calcium 8.5 MG/DL (8.5-10.1); Osmolality,Calculated 309.6 MOS/KG (273-304)
[2019-03-05] MEDS: INSULIN LISPRO 100 UNIT/ML SUBCUT SCH ×4 (07:43→23:33)
[2019-03-05] MEDS ORDERED: DEXTROSE 5% 500 ML IV SCH (08:50)
[2019-03-05] MEDS ORDERED: FUROSEMIDE 40 MG/4 ML VIAL IV ONE (09:01)
[2019-03-05] MEDS: BRIMONIDINE 0.1% OPH SOLN 5 ML BOTTLE BOTH EYES SCH ×2 (09:33→23:32)
[2019-03-05] MEDS: ASPIRIN EC 81 MG TABLET PO SCH (09:33)
[2019-03-05] MEDS ORDERED: ETOMIDATE 20 MG/10 ML VIAL IV ONE (10:00)
[2019-03-05] MEDS ORDERED: PROPOFOL 200 MG/20 ML VIAL IV ONE (10:00)
[2019-03-05] MEDS ORDERED: GLYCOPYRROLATE 0.4 MG/2 ML VIAL ONE (10:00)
[2019-03-05] MEDS ORDERED: LIDOCAINE 2% 5 ML VIAL ONE (10:00)
[2019-03-05] MEDS ORDERED: METOPROLOL TARTRATE 5 MG/5 ML VIAL IV ONE (14:22)
[2019-03-05] MEDS: ASPIRIN 300 MG SUPP RECTAL SCH (14:24)
[2019-03-05] MEDS ORDERED: DOCUSATE SODIUM 100 MG CAPSULE PO PRN (14:32)
[2019-03-05] MEDS ORDERED: DEXTROSE 50% 25 GM/50 ML VIAL IV PRN (15:27)
[2019-03-05] MEDS ORDERED: GLUCAGON 1 MG VIAL IM PRN (15:27)
[2019-03-05] MEDS: PANTOPRAZOLE 40 MG TABLET PO SCH ×2 (16:09→23:26)
[2019-03-05] MEDS: GABAPENTIN 400 MG CAPSULE PO SCH (16:09)
[2019-03-05] MEDS: POTASSIUM CHLORIDE 10 MEQ TABLET PO SCH (16:09)
[2019-03-05] MEDS: METOPROLOL TARTRATE 25 MG TABLET PO SCH ×2 (16:10→23:26)
[2019-03-05] MEDS: FERROUS SULFATE 325 MG TABLET PO SCH ×2 (16:10→23:34)
[2019-03-05] MEDS: cloNIDine 0.1 MG TABLET PO PRN (17:16)
[2019-03-05] MEDS: CITALOPRAM 20 MG TABLET PO SCH (23:24)
[2019-03-05] MEDS: ATORVASTATIN 10 MG TABLET PO SCH (23:25)
[2019-03-05] MEDS: MIRTAZAPINE 15 MG TABLET PO SCH (23:25)
[2019-03-05] MEDS: DONEPEZIL 10 MG TABLET PO SCH (23:32)
[2019-03-05] MEDS: QUEtiapine 25 MG TABLET PO SCH (23:34)
[2019-03-06 05:45] LABS: Basophils % 0.1 % (0.0-0.8); Eosinophils # 0.2 10*3/uL (0.0-0.87); Eosinophils % 2.5 % (0.00-10.9); Hematocrit 31.1 VOL% (42.0-52.0); Hemoglobin 9.7 GM/DL (14.0-18.0); Immature Granulocytes % 0.3 %; Immature Granulocytes Absolute 0.02 #; Lymphocytes # 1.5 10*3/uL (1.4-4.0); Lymphocytes % 20.9 % (21.2-54.2); Mean Corpuscular HGB Conc 31.2 GM/DL (32-36); Mean Corpuscular Volume 80.2 FL (87-102); Mean Platelet Volume 11.5 FL (9.6-12.0); Monocytes % 6.4 % (1.7-12.7); Neutrophils % 69.8 % (38.7-73.9); Platelet Count 202 T/CUMM (130-400); Red Blood Count 3.88 MC/CUMM (3.8-5.5); Red Cell Distribution Width 15.9 % (9.3-17.3); White Blood Count 7.3 T/CUMM (4-12)
[2019-03-06 06:05] LABS: Calcium 8.1 MG/DL (8.5-10.1); Osmolality,Calculated 306.9 MOS/KG (273-304)
[2019-03-06] MEDS: CLINDAMYCIN INJ 300 MG in PREMIX 1 EACH IV SCH ×3 (06:15→22:54)
[2019-03-06] MEDS: BUDESONIDE 0.5 MG/2 ML NEB RESP TX SCH ×2 (09:00→20:14)
[2019-03-06] MEDS: GABAPENTIN 400 MG CAPSULE PO SCH (10:49)
[2019-03-06] MEDS: COLCHICINE 0.6 MG CAPSULE PO SCH (10:49)
[2019-03-06] MEDS: TAMSULOSIN 0.4 MG CAPSULE PO SCH (10:49)
[2019-03-06] MEDS: BRIMONIDINE 0.1% OPH SOLN 5 ML BOTTLE BOTH EYES SCH (10:50)
[2019-03-06] MEDS: FEBUXOSTAT 80 MG TABLET PO SCH (10:50)
[2019-03-06] MEDS: ASPIRIN EC 81 MG TABLET PO SCH (10:50)
[2019-03-06] MEDS: PANTOPRAZOLE 40 MG TABLET PO SCH ×2 (10:50→22:53)
[2019-03-06] MEDS: POTASSIUM CHLORIDE 10 MEQ TABLET PO SCH (10:50)
[2019-03-06] MEDS: METOPROLOL TARTRATE 25 MG TABLET PO SCH ×2 (10:50→22:53)
[2019-03-06] MEDS: amLODIPine 10 MG TABLET PO SCH (10:50)
[2019-03-06] MEDS: FERROUS SULFATE 325 MG TABLET PO SCH ×2 (10:50→22:52)
[2019-03-06] MEDS: FUROSEMIDE 40 MG TABLET PO SCH (10:50)
[2019-03-06] MEDS: INSULIN LISPRO 100 UNIT/ML SUBCUT SCH ×3 (11:08→18:30)
[2019-03-06] MEDS ORDERED: MAGNESIUM SULF RIDER 4 GM in PREMIX 1 EACH IV PRN (18:33)
[2019-03-06] MEDS ORDERED: MAGNESIUM SULF RIDER 2 GM in PREMIX 1 EACH IV PRN (18:33)
[2019-03-06] MEDS ORDERED: POTASSIUM CHLORIDE 20 MEQ/15 ML UDCUP PER TUBE PRN (18:34)
[2019-03-06] MEDS: ALBUTEROL 2.5 MG/3 ML NEB RESP TX PRN (20:14)
[2019-03-06] MEDS: ATORVASTATIN 10 MG TABLET PO SCH (22:51)
[2019-03-06] MEDS: DONEPEZIL 10 MG TABLET PO SCH (22:52)
[2019-03-06] MEDS: CITALOPRAM 20 MG TABLET PO SCH (22:52)
[2019-03-06] MEDS: MIRTAZAPINE 15 MG TABLET PO SCH (22:53)
[2019-03-07] MEDS: BRIMONIDINE 0.1% OPH SOLN 5 ML BOTTLE BOTH EYES SCH ×3 (00:19→21:38)
[2019-03-07] MEDS: QUEtiapine 25 MG TABLET PO SCH ×2 (00:19→21:39)
[2019-03-07] MEDS: INSULIN LISPRO 100 UNIT/ML SUBCUT SCH ×5 (00:20→21:40)
[2019-03-07] MEDS: CLINDAMYCIN INJ 300 MG in PREMIX 1 EACH IV SCH ×3 (05:14→21:39)
[2019-03-07 06:00] LABS: Basophils % 0.3 % (0.0-0.8); Eosinophils # 0.3 10*3/uL (0.0-0.87); Eosinophils % 4.4 % (0.00-10.9); Hematocrit 33.4 VOL% (42.0-52.0); Hemoglobin 10.2 GM/DL (14.0-18.0); Immature Granulocytes % 0.4 %; Immature Granulocytes Absolute 0.03 #; Lymphocytes # 1.2 10*3/uL (1.4-4.0); Lymphocytes % 17.6 % (21.2-54.2); Mean Corpuscular HGB Conc 30.5 GM/DL (32-36); Mean Corpuscular Volume 80.9 FL (87-102); Mean Platelet Volume 12.3 FL (9.6-12.0); Monocytes % 7.3 % (1.7-12.7); Platelet Count 201 T/CUMM (130-400); Red Blood Count 4.13 MC/CUMM (3.8-5.5); Red Cell Distribution Width 15.7 % (9.3-17.3)
[2019-03-07 06:12] LABS: Calcium 8.4 MG/DL (8.5-10.1); Osmolality,Calculated 315.4 MOS/KG (273-304)
[2019-03-07] MEDS: BUDESONIDE 0.5 MG/2 ML NEB RESP TX SCH ×2 (07:45→19:51)
[2019-03-07] MEDS: PANTOPRAZOLE 40 MG TABLET PO SCH ×2 (08:27→21:39)
[2019-03-07] MEDS: amLODIPine 10 MG TABLET PO SCH (08:28)
[2019-03-07] MEDS: cloNIDine 0.1 MG TABLET PO PRN (08:28)
[2019-03-07] MEDS: ASPIRIN EC 81 MG TABLET PO SCH (08:28)
[2019-03-07] MEDS: FUROSEMIDE 40 MG TABLET PO SCH (08:28)
[2019-03-07] MEDS: FEBUXOSTAT 80 MG TABLET PO SCH (08:28)
[2019-03-07] MEDS: POTASSIUM CHLORIDE 10 MEQ TABLET PO SCH (08:29)
[2019-03-07] MEDS: COLCHICINE 0.6 MG CAPSULE PO SCH (08:29)
[2019-03-07] MEDS: FERROUS SULFATE 325 MG TABLET PO SCH ×2 (08:29→21:39)
[2019-03-07] MEDS: METOPROLOL TARTRATE 25 MG TABLET PO SCH ×2 (08:30→21:39)
[2019-03-07] MEDS: TAMSULOSIN 0.4 MG CAPSULE PO SCH (08:30)
[2019-03-07] MEDS: GABAPENTIN 400 MG CAPSULE PO SCH (08:30)
[2019-03-07] MEDS: SCOPOLAMINE 1.5 MG PATCH TRANSDERM SCH (09:49)
[2019-03-07] MEDS: DONEPEZIL 10 MG TABLET PO SCH (21:39)
[2019-03-07] MEDS: ATORVASTATIN 10 MG TABLET PO SCH (21:39)
[2019-03-07] MEDS: CITALOPRAM 20 MG TABLET PO SCH (21:39)
[2019-03-07] MEDS: MIRTAZAPINE 15 MG TABLET PO SCH (21:39)
[2019-03-08] MEDS: CLINDAMYCIN INJ 300 MG in PREMIX 1 EACH IV SCH ×3 (04:14→21:58)
[2019-03-08 06:03] LABS: Calcium 8.6 MG/DL (8.5-10.1); Osmolality,Calculated 320.3 MOS/KG (273-304); Prealbumin 18.7 MG/DL (20-40)
[2019-03-08] MEDS: cloNIDine 0.1 MG TABLET PO PRN (07:24)
[2019-03-08] MEDS: ALBUTEROL 2.5 MG/3 ML NEB RESP TX PRN (07:59)
[2019-03-08] MEDS: BUDESONIDE 0.5 MG/2 ML NEB RESP TX SCH ×2 (07:59→19:59)
[2019-03-08] MEDS: SCOPOLAMINE 1.5 MG PATCH TRANSDERM SCH (09:23)
[2019-03-08] MEDS: INSULIN LISPRO 100 UNIT/ML SUBCUT SCH ×4 (09:24→21:55)
[2019-03-08] MEDS: ENOXAPARIN 30 MG/0.3 ML SYRINGE SUBCUT SCH (09:25)
[2019-03-08] MEDS: BRIMONIDINE 0.1% OPH SOLN 5 ML BOTTLE BOTH EYES SCH ×2 (09:27→21:55)
[2019-03-08] MEDS: FEBUXOSTAT 80 MG TABLET PO SCH (09:29)
[2019-03-08] MEDS: amLODIPine 10 MG TABLET PO SCH (09:29)
[2019-03-08] MEDS: COLCHICINE 0.6 MG CAPSULE PO SCH (09:29)
[2019-03-08] MEDS: FERROUS SULFATE 325 MG TABLET PO SCH ×2 (09:29→21:57)
[2019-03-08] MEDS: METOPROLOL TARTRATE 25 MG TABLET PO SCH ×2 (09:30→21:58)
[2019-03-08] MEDS: CLOPIDOGREL 75 MG TABLET PO SCH (09:32)
[2019-03-08] MEDS: FUROSEMIDE 40 MG TABLET PO SCH (09:32)
[2019-03-08] MEDS: TAMSULOSIN 0.4 MG CAPSULE PO SCH (09:32)
[2019-03-08] MEDS: ASPIRIN EC 81 MG TABLET PO SCH (09:32)
[2019-03-08] MEDS: PANTOPRAZOLE 40 MG TABLET PO SCH ×2 (09:32→21:57)
[2019-03-08] MEDS: GABAPENTIN 400 MG CAPSULE PO SCH (09:32)
[2019-03-08] MEDS: POTASSIUM CHLORIDE 10 MEQ TABLET PO SCH (11:03)
[2019-03-08] MEDS: hydrALAZINE 25 MG TABLET PO SCH ×2 (16:35→21:56)
[2019-03-08] MEDS: ATORVASTATIN 10 MG TABLET PO SCH (21:56)
[2019-03-08] MEDS: MIRTAZAPINE 15 MG TABLET PO SCH (21:57)
[2019-03-08] MEDS: QUEtiapine 25 MG TABLET PO SCH (21:57)
[2019-03-08] MEDS: CITALOPRAM 20 MG TABLET PO SCH (21:57)
[2019-03-08] MEDS: DONEPEZIL 10 MG TABLET PO SCH (21:58)
[2019-03-09] MEDS: CLINDAMYCIN INJ 300 MG in PREMIX 1 EACH IV SCH ×2 (05:08→15:40)
[2019-03-09] MEDS: BUDESONIDE 0.5 MG/2 ML NEB RESP TX SCH ×2 (07:11→19:40)
[2019-03-09] MEDS: INSULIN LISPRO 100 UNIT/ML SUBCUT SCH ×4 (08:13→21:54)
[2019-03-09] MEDS: ASPIRIN EC 81 MG TABLET PO SCH (08:32)
[2019-03-09] MEDS: PANTOPRAZOLE 40 MG TABLET PO SCH ×2 (08:32→21:11)
[2019-03-09] MEDS: METOPROLOL TARTRATE 25 MG TABLET PO SCH ×2 (08:33→21:13)
[2019-03-09] MEDS: CLOPIDOGREL 75 MG TABLET PO SCH (08:34)
[2019-03-09] MEDS: FERROUS SULFATE 325 MG TABLET PO SCH ×2 (08:34→21:13)
[2019-03-09] MEDS: GABAPENTIN 400 MG CAPSULE PO SCH (08:34)
[2019-03-09] MEDS: FUROSEMIDE 40 MG TABLET PO SCH (08:34)
[2019-03-09] MEDS: FEBUXOSTAT 80 MG TABLET PO SCH (08:35)
[2019-03-09] MEDS: amLODIPine 10 MG TABLET PO SCH (08:35)
[2019-03-09] MEDS: COLCHICINE 0.6 MG CAPSULE PO SCH (08:35)
[2019-03-09] MEDS: POTASSIUM CHLORIDE 10 MEQ TABLET PO SCH (08:35)
[2019-03-09] MEDS: hydrALAZINE 25 MG TABLET PO SCH ×2 (08:35→18:05)
[2019-03-09] MEDS: BRIMONIDINE 0.1% OPH SOLN 5 ML BOTTLE BOTH EYES SCH ×2 (08:36→21:14)
[2019-03-09] MEDS ORDERED: ERGOCALCIFEROL 50,000 UNIT CAPSULE PO SCH (09:00)
[2019-03-09] MEDS: TAMSULOSIN 0.4 MG CAPSULE PO SCH (10:04)
[2019-03-09] MEDS: ENOXAPARIN 30 MG/0.3 ML SYRINGE SUBCUT SCH (10:34)
[2019-03-09] MEDS: DEXTROSE 5% 1,000 ML IV SCH (17:15)
[2019-03-09] MEDS: hydrALAZINE 20 MG/1 ML VIAL IV PRN (17:19)
[2019-03-09] MEDS ORDERED: INSULIN GLARGINE 100 UNIT/ML SUBCUT SCH (21:00)
[2019-03-09] MEDS: CITALOPRAM 20 MG TABLET PO SCH (21:11)
[2019-03-09] MEDS: DONEPEZIL 10 MG TABLET PO SCH (21:11)
[2019-03-09] MEDS: QUEtiapine 25 MG TABLET PO SCH (21:12)
[2019-03-09] MEDS: ATORVASTATIN 10 MG TABLET PO SCH (21:12)
[2019-03-09] MEDS: cloNIDine 0.1 MG TABLET PO SCH (21:12)
[2019-03-09] MEDS: MIRTAZAPINE 15 MG TABLET PO SCH (21:13)
[2019-03-10] MEDS: hydrALAZINE 20 MG/1 ML VIAL IV PRN (03:58)
[2019-03-10 06:59] LABS: Basophils % 0.6 % (0.0-0.8); Eosinophils # 0.3 10*3/uL (0.0-0.87); Hematocrit 34.7 VOL% (42.0-52.0); Hemoglobin 10.5 GM/DL (14.0-18.0); Immature Granulocytes % 0.5 %; Immature Granulocytes Absolute 0.03 #; Lymphocytes # 1.5 10*3/uL (1.4-4.0); Lymphocytes % 22.8 % (21.2-54.2); Mean Corpuscular HGB Conc 30.3 GM/DL (32-36); Mean Corpuscular Volume 80.9 FL (87-102); Mean Platelet Volume 12.5 FL (9.6-12.0); Monocytes % 9.1 % (1.7-12.7); Platelet Count 219 T/CUMM (130-400); Red Blood Count 4.29 MC/CUMM (3.8-5.5); White Blood Count 6.6 T/CUMM (4-12)
[2019-03-10] MEDS: BUDESONIDE 0.5 MG/2 ML NEB RESP TX SCH ×2 (08:05→19:44)
[2019-03-10] MEDS: DEXTROSE 5% 1,000 ML IV SCH ×3 (08:13→21:47)
[2019-03-10] MEDS: GABAPENTIN 400 MG CAPSULE PO SCH (08:35)
[2019-03-10] MEDS: COLCHICINE 0.6 MG CAPSULE PO SCH (08:35)
[2019-03-10] MEDS: SCOPOLAMINE 1.5 MG PATCH TRANSDERM SCH (08:36)
[2019-03-10] MEDS: PANTOPRAZOLE 40 MG TABLET PO SCH ×2 (08:36→21:21)
[2019-03-10] MEDS: ASPIRIN EC 81 MG TABLET PO SCH (08:36)
[2019-03-10] MEDS: CLOPIDOGREL 75 MG TABLET PO SCH (08:37)
[2019-03-10] MEDS: FERROUS SULFATE 325 MG TABLET PO SCH ×2 (08:37→21:17)
[2019-03-10] MEDS: cloNIDine 0.1 MG TABLET PO SCH ×3 (08:37→21:20)
[2019-03-10] MEDS: METOPROLOL TARTRATE 25 MG TABLET PO SCH ×2 (08:37→21:20)
[2019-03-10] MEDS: amLODIPine 10 MG TABLET PO SCH (08:37)
[2019-03-10] MEDS: FEBUXOSTAT 80 MG TABLET PO SCH (08:38)
[2019-03-10] MEDS: POTASSIUM CHLORIDE 10 MEQ TABLET PO SCH (08:38)
[2019-03-10] MEDS: BRIMONIDINE 0.1% OPH SOLN 5 ML BOTTLE BOTH EYES SCH ×2 (08:39→21:22)
[2019-03-10] MEDS: ENOXAPARIN 30 MG/0.3 ML SYRINGE SUBCUT SCH (09:09)
[2019-03-10] MEDS: INSULIN LISPRO 100 UNIT/ML SUBCUT SCH ×4 (09:28→21:40)
[2019-03-10 18:23] LABS: Calcium 8.2 MG/DL (8.5-10.1); Osmolality,Calculated 315.1 MOS/KG (273-304)
[2019-03-10] MEDS: CITALOPRAM 20 MG TABLET PO SCH (21:17)
[2019-03-10] MEDS: QUEtiapine 25 MG TABLET PO SCH (21:19)
[2019-03-10] MEDS: DONEPEZIL 10 MG TABLET PO SCH (21:20)
[2019-03-10] MEDS: MIRTAZAPINE 15 MG TABLET PO SCH (21:20)
[2019-03-10] MEDS: ATORVASTATIN 10 MG TABLET PO SCH (21:21)
[2019-03-10] MEDS: INSULIN GLARGINE 100 UNIT/ML SUBCUT SCH (21:46)
[2019-03-11 04:42] LABS: Basophils % 0.4 % (0.0-0.8); Eosinophils # 0.3 10*3/uL (0.0-0.87); Eosinophils % 4.2 % (0.00-10.9); Hematocrit 30.1 VOL% (42.0-52.0); Hemoglobin 9.1 GM/DL (14.0-18.0); Immature Granulocytes % 0.3 %; Immature Granulocytes Absolute 0.02 #; Lymphocytes # 1.7 10*3/uL (1.4-4.0); Lymphocytes % 24.7 % (21.2-54.2); Mean Corpuscular HGB Conc 30.2 GM/DL (32-36); Mean Corpuscular Volume 81.4 FL (87-102); Monocytes % 11.1 % (1.7-12.7); Neutrophils % 59.3 % (38.7-73.9); Platelet Count 229 T/CUMM (130-400); White Blood Count 6.7 T/CUMM (4-12)
[2019-03-11] MEDS: DEXTROSE 5% 1,000 ML IV SCH (08:22)
[2019-03-11] MEDS: BUDESONIDE 0.5 MG/2 ML NEB RESP TX SCH ×2 (08:23→19:56)
[2019-03-11] MEDS: INSULIN LISPRO 100 UNIT/ML SUBCUT SCH ×3 (09:39→16:34)
[2019-03-11] MEDS: BRIMONIDINE 0.1% OPH SOLN 5 ML BOTTLE BOTH EYES SCH ×2 (09:39→21:21)
[2019-03-11] MEDS: FEBUXOSTAT 80 MG TABLET PO SCH (09:40)
[2019-03-11] MEDS: ENOXAPARIN 30 MG/0.3 ML SYRINGE SUBCUT SCH (09:40)
[2019-03-11] MEDS: ASPIRIN EC 81 MG TABLET PO SCH (09:41)
[2019-03-11] MEDS: POTASSIUM CHLORIDE 10 MEQ TABLET PO SCH (09:41)
[2019-03-11] MEDS: CLOPIDOGREL 75 MG TABLET PO SCH (09:41)
[2019-03-11] MEDS: COLCHICINE 0.6 MG CAPSULE PO SCH (09:41)
[2019-03-11] MEDS: amLODIPine 10 MG TABLET PO SCH (09:41)
[2019-03-11] MEDS: GABAPENTIN 400 MG CAPSULE PO SCH (09:41)
[2019-03-11] MEDS: FERROUS SULFATE 325 MG TABLET PO SCH ×2 (09:41→21:20)
[2019-03-11] MEDS: cloNIDine 0.1 MG TABLET PO SCH ×3 (09:42→21:20)
[2019-03-11] MEDS: METOPROLOL TARTRATE 25 MG TABLET PO SCH ×2 (09:42→21:20)
[2019-03-11] MEDS: PANTOPRAZOLE 40 MG TABLET PO SCH ×2 (09:42→21:19)
[2019-03-11] MEDS: MIRTAZAPINE 15 MG TABLET PO SCH (21:19)
[2019-03-11] MEDS: QUEtiapine 25 MG TABLET PO SCH (21:19)
[2019-03-11] MEDS: DONEPEZIL 10 MG TABLET PO SCH (21:20)
[2019-03-11] MEDS: ATORVASTATIN 10 MG TABLET PO SCH (21:20)
[2019-03-11] MEDS: CITALOPRAM 20 MG TABLET PO SCH (21:20)
[2019-03-11] MEDS: INSULIN GLARGINE 100 UNIT/ML SUBCUT SCH (21:21)
[2019-03-12] MEDS: DEXTROSE 5% 1,000 ML IV SCH ×3 (00:55→21:48)
[2019-03-12] MEDS: INSULIN LISPRO 100 UNIT/ML SUBCUT SCH ×5 (02:00→21:19)
[2019-03-12] MEDS: BUDESONIDE 0.5 MG/2 ML NEB RESP TX SCH ×2 (07:10→19:32)
[2019-03-12] MEDS: COLCHICINE 0.6 MG CAPSULE PO SCH (09:18)
[2019-03-12] MEDS: BRIMONIDINE 0.1% OPH SOLN 5 ML BOTTLE BOTH EYES SCH ×2 (09:18→21:49)
[2019-03-12] MEDS: POTASSIUM CHLORIDE 10 MEQ TABLET PO SCH (09:18)
[2019-03-12] MEDS: ENOXAPARIN 30 MG/0.3 ML SYRINGE SUBCUT SCH (09:18)
[2019-03-12] MEDS: GABAPENTIN 400 MG CAPSULE PO SCH (09:18)
[2019-03-12] MEDS: FERROUS SULFATE 325 MG TABLET PO SCH ×2 (09:18→21:33)
[2019-03-12] MEDS: ASPIRIN EC 81 MG TABLET PO SCH (09:19)
[2019-03-12] MEDS: CLOPIDOGREL 75 MG TABLET PO SCH (09:19)
[2019-03-12] MEDS: FEBUXOSTAT 80 MG TABLET PO SCH (09:19)
[2019-03-12] MEDS: cloNIDine 0.1 MG TABLET PO SCH ×3 (09:19→21:33)
[2019-03-12] MEDS: METOPROLOL TARTRATE 25 MG TABLET PO SCH ×2 (09:19→21:33)
[2019-03-12] MEDS: PANTOPRAZOLE 40 MG TABLET PO SCH ×2 (09:20→21:34)
[2019-03-12] MEDS: amLODIPine 10 MG TABLET PO SCH (09:20)
[2019-03-12] MEDS: ALBUTEROL 2.5 MG/3 ML NEB RESP TX PRN (19:32)
[2019-03-12] MEDS: QUEtiapine 25 MG TABLET PO SCH (21:33)
[2019-03-12] MEDS: CITALOPRAM 20 MG TABLET PO SCH (21:33)
[2019-03-12] MEDS: DONEPEZIL 10 MG TABLET PO SCH (21:33)
[2019-03-12] MEDS: MIRTAZAPINE 15 MG TABLET PO SCH (21:34)
[2019-03-12] MEDS: ATORVASTATIN 10 MG TABLET PO SCH (21:34)
[2019-03-12] MEDS: INSULIN GLARGINE 100 UNIT/ML SUBCUT SCH (21:34)
[2019-03-13] MEDS: DEXTROSE 5% 1,000 ML IV SCH (05:49)
[2019-03-13] MEDS: BUDESONIDE 0.5 MG/2 ML NEB RESP TX SCH (07:44)
[2019-03-13] MEDS: ALBUTEROL 2.5 MG/3 ML NEB RESP TX PRN (07:47)
[2019-03-13 08:26] VITALS: BP 159/75
[2019-03-13] MEDS: CLOPIDOGREL 75 MG TABLET PO SCH (09:20)
[2019-03-13] MEDS: ENOXAPARIN 30 MG/0.3 ML SYRINGE SUBCUT SCH (09:20)
[2019-03-13] MEDS: cloNIDine 0.1 MG TABLET PO SCH (09:20)
[2019-03-13] MEDS: COLCHICINE 0.6 MG CAPSULE PO SCH (09:20)
[2019-03-13] MEDS: POTASSIUM CHLORIDE 10 MEQ TABLET PO SCH (09:21)
[2019-03-13] MEDS: ASPIRIN EC 81 MG TABLET PO SCH (09:21)
[2019-03-13] MEDS: FEBUXOSTAT 80 MG TABLET PO SCH (09:21)
[2019-03-13] MEDS: FERROUS SULFATE 325 MG TABLET PO SCH (09:21)
[2019-03-13] MEDS: amLODIPine 10 MG TABLET PO SCH (09:21)
[2019-03-13] MEDS: INSULIN LISPRO 100 UNIT/ML SUBCUT SCH (09:21)
[2019-03-13] MEDS: GABAPENTIN 400 MG CAPSULE PO SCH (09:21)
[2019-03-13] MEDS: METOPROLOL TARTRATE 25 MG TABLET PO SCH (09:21)
[2019-03-13] MEDS: PANTOPRAZOLE 40 MG TABLET PO SCH (09:21)
[2019-03-13] MEDS: SCOPOLAMINE 1.5 MG PATCH TRANSDERM SCH (09:22)
[2019-03-13] MEDS: BRIMONIDINE 0.1% OPH SOLN 5 ML BOTTLE BOTH EYES SCH (09:22)
== END 2019-03-13 11:05 | DRG 65 ==
LOC: N.ED 21:11 → SUATTDRO 23:45 → N.EDINP 23:45 → N.4E 03-03 02:00
PROVIDERS: ADMIT Family Medicine; ATTEND Internal Medicine
PROC: EGDWPEG (ICD-10-PCS; 2019-03-05 10:35)

== ENCOUNTER 2019-05-14 10:07 | Inpatient (IN) ==
[2019-05-14] MEDS ORDERED: DEXTROSE 50% 25 GM/50 ML VIAL IV STA (10:39)
[2019-05-14] MEDS ORDERED: CALCIUM CHLORIDE 1,000 MG/10 ML SYRINGE IV STA (10:39)
[2019-05-14] MEDS ORDERED: ALBUTEROL NEB SOLN 5 MG/ML 20 ML/BOTTLE CONT NEB STA (10:39)
[2019-05-14] MEDS ORDERED: INSULIN REGULAR 100 UNIT/ML IV ONE (10:40)
[2019-05-14] MEDS ORDERED: SODIUM BICARBONATE 50 MEQ/50 ML VIAL IV STA (10:40)
[2019-05-14] MEDS ORDERED: DEXTROSE 50% 25 GM/50 ML SYRINGE IV ONE (11:30)
[2019-05-14] MEDS ORDERED: KETOROLAC 30 MG/1 ML VIAL IV STA (11:42)
[2019-05-14 11:50] LABS: PT Patient Result 11.2 SECS (9.6-12.2); Partial Thromboplastin Time 22.2 SECS (20.8-36.0)
[2019-05-14 12:03] LABS: Basophils % 0.5 % (0.0-0.8); Eosinophils # 0.4 10*3/uL (0.0-0.87); Eosinophils % 7.1 % (0.00-10.9); Hematocrit 29.2 VOL% (42.0-52.0); Hemoglobin 7.8 GM/DL (14.0-18.0); Immature Granulocytes % 0.3 %; Immature Granulocytes Absolute 0.02 #; Lymphocytes # 1.9 10*3/uL (1.4-4.0); Lymphocytes % 32.6 % (21.2-54.2); Mean Corpuscular HGB Conc 26.7 GM/DL (32-36); Mean Corpuscular Volume 95.7 FL (87-102); NRBC # 0.04 10*3/uL; Neutrophils % 50.5 % (38.7-73.9); Red Blood Count 3.05 MC/CUMM (3.8-5.5); Red Cell Distribution Width 22.2 % (9.3-17.3); White Blood Count 5.8 T/CUMM (4-12)
[2019-05-14 12:05] LABS: Platelet Count 105 T/CUMM (130-400)
[2019-05-14] MEDS: DEXTROSE 5% NACL 0.45% 1,000 ML IV SCH ×2 (12:20→14:44)
[2019-05-14 12:22] LABS: Apearance,Urine CLEAR (Clear); Bilirubin,Urine Negative (Negative); Blood, Urine Negative (Negative); Glucose,Urine (UA) 50 mg/dL (Negative); Ketones,Urine Negative (Negative); Nitrite,Urine Negative (Negative); Protein,Urine 100 MG/DL; Squamous Epithelial Cell,Urine Occasional /HPF (0-10); Urine Color Yellow (Yellow); Urine Specific Gravity 1.014 (1.001-1.035); Urine Urobilinogen < 2.0 EU/DL (0.2-1.0); WBC,Urine <1 /HPF (0-6)
[2019-05-14 12:30] LABS: Barbiturates Screen,Urine Negative (Negative); Benzodiazepines Screen,Urine Negative (Negative); Cannabinoid Screen,Urine Negative (Negative); Opiate Screen,Urine Negative (Negative); Phencyclidine Screen,Urine Negative (Negative)
[2019-05-14] MEDS ORDERED: DOCUSATE SODIUM 100 MG CAPSULE PO PRN (12:34)
[2019-05-14 12:48] LABS: Alanine Aminotransferase 110 U/L (16-61); Albumin 2.7 G/DL (3.4-5.0); Alkaline Phosphatase 180 U/L (45-117); Aspartate Amino Transferase 135 U/L (0-37); Bilirubin,Total < 0.39 MG/DL (0.2-1.0); Blood Urea Nitrogen 141 MG/DL (7-18); Calcium 8.4 MG/DL (8.5-10.1); Estimated Glom Filtration Rate 17 ML/MIN; Glucose 249 MG/DL (74-106); Osmolality,Calculated 390.1 MOS/KG (273-304); Total Protein 6.5 G/DL (6.4-8.3)
[2019-05-14 12:49] LABS: Troponin I 0.057 NG/ML (0.00-0.045)
[2019-05-14 13:15] LABS: % Iron Saturation 21.3 % (18-50)
[2019-05-14 13:40] LABS: Hypochromasia 1+
[2019-05-14 13:41] LABS: Anisocytosis 1+; Macrocytosis 1+; Microcytosis 1+; Platelet Estimate Decreased
[2019-05-14 13:43] LABS: Polychromasia Slight
[2019-05-14] MEDS: SODIUM CHLORIDE 0.45% 1,000 ML IV SCH ×2 (15:02→21:17)
[2019-05-14] MEDS: THIAMINE 200 MG/2 ML VIAL IV SCH (15:02)
[2019-05-14] MEDS: cloNIDine 0.1 MG TABLET PEG SCH ×2 (15:06→21:18)
[2019-05-14] MEDS ORDERED: GLUCAGON 1 MG VIAL IM PRN (16:43)
[2019-05-14] MEDS ORDERED: DEXTROSE 50% 25 GM/50 ML VIAL IV PRN (16:43)
[2019-05-14 17:11] LABS: Troponin I 0.074 NG/ML (0.00-0.045)
[2019-05-14] MEDS: INSULIN NPH 100 UNIT/ML SUBCUT SCH (17:13)
[2019-05-14] MEDS: INSULIN REGULAR 100 UNIT/ML SUBCUT SCH (17:13)
[2019-05-14 21:05] LABS: Troponin I 0.074 NG/ML (0.00-0.045)
[2019-05-14] MEDS: MIRTAZAPINE 15 MG TABLET PEG SCH (21:18)
[2019-05-14] MEDS: METOPROLOL TARTRATE 25 MG TABLET PEG SCH (21:18)
[2019-05-14] MEDS: ENOXAPARIN 30 MG/0.3 ML SYRINGE SUBCUT SCH (21:18)
[2019-05-14] MEDS: BRIMONIDINE 0.1% OPH SOLN 5 ML BOTTLE BOTH EYES SCH (21:18)
[2019-05-14] MEDS: DONEPEZIL 10 MG TABLET PEG SCH (21:19)
[2019-05-15] MEDS: INSULIN REGULAR 100 UNIT/ML SUBCUT SCH ×4 (00:25→18:48)
[2019-05-15] MEDS: SODIUM CHLORIDE 0.45% 1,000 ML IV SCH ×3 (02:29→19:16)
[2019-05-15 05:13] LABS: Alanine Aminotransferase 70 U/L (16-61); Albumin 2.4 G/DL (3.4-5.0); Alkaline Phosphatase 121 U/L (45-117); Aspartate Amino Transferase 58 U/L (0-37); Bilirubin,Direct < 0.100 MG/DL (0.0-0.20); Bilirubin,Indirect 0.3 MG/DL (0.0-1.0); Bilirubin,Total < 0.39 MG/DL (0.2-1.0); Total Protein 6.3 G/DL (6.4-8.3)
[2019-05-15 05:19] LABS: Blood Urea Nitrogen 126 MG/DL (7-18); Estimated Glom Filtration Rate 18 ML/MIN; Glucose 122 MG/DL (74-106); Osmolality,Calculated 378.1 MOS/KG (273-304)
[2019-05-15] MEDS: cloNIDine 0.1 MG TABLET PEG SCH ×3 (05:23→21:44)
[2019-05-15 06:50] LABS: Basophils % 0.4 % (0.0-0.8); Eosinophils # 0.4 10*3/uL (0.0-0.87); Eosinophils % 7.2 % (0.00-10.9); Immature Granulocytes % 0.2 %; Immature Granulocytes Absolute 0.01 #; Lymphocytes # 1.5 10*3/uL (1.4-4.0); Lymphocytes % 28.1 % (21.2-54.2); Mean Corpuscular HGB Conc 25.8 GM/DL (32-36); Mean Corpuscular Volume 95.9 FL (87-102); Monocytes % 9.3 % (1.7-12.7); NRBC # 0.05 10*3/uL; Neutrophils % 54.8 % (38.7-73.9); Red Blood Count 2.71 MC/CUMM (3.8-5.5); Red Cell Distribution Width 21.7 % (9.3-17.3); White Blood Count 5.2 T/CUMM (4-12)
[2019-05-15 06:55] LABS: Hemoglobin 6.7 GM/DL (14.0-18.0); Platelet Count 84 T/CUMM (130-400)
[2019-05-15 07:12] LABS: Anisocytosis 1+; Hypochromasia 2+; Microcytosis 1+
[2019-05-15 07:13] LABS: Ovalocytes Slight; Platelet Estimate Decreased; Tear Drop Cells Slight
[2019-05-15] MEDS: INSULIN NPH 100 UNIT/ML SUBCUT SCH ×2 (08:03→16:25)
[2019-05-15] MEDS: ACETAMINOPHEN 325 MG TABLET PEG SCH (08:41)
[2019-05-15] MEDS: FEBUXOSTAT 80 MG TABLET PEG SCH ×2 (08:41→09:05)
[2019-05-15] MEDS: CLOPIDOGREL 75 MG TABLET PEG SCH (08:41)
[2019-05-15] MEDS: amLODIPine 10 MG TABLET PEG SCH (08:42)
[2019-05-15] MEDS: METOPROLOL TARTRATE 25 MG TABLET PEG SCH ×2 (08:42→21:45)
[2019-05-15] MEDS: THIAMINE 200 MG/2 ML VIAL IV SCH (08:43)
[2019-05-15] MEDS: BRIMONIDINE 0.1% OPH SOLN 5 ML BOTTLE BOTH EYES SCH ×2 (09:04→21:45)
[2019-05-15] MEDS ORDERED: SODIUM CHLORIDE 0.9% 1,000 ML IV PRN (14:48)
[2019-05-15 15:29] LABS: Blood Urea Nitrogen 118 MG/DL (7-18); Calcium 8.3 MG/DL (8.5-10.1); Estimated Glom Filtration Rate 18 ML/MIN; Glucose 166 MG/DL (74-106); Osmolality,Calculated 378.1 MOS/KG (273-304)
[2019-05-15] MEDS ORDERED: FUROSEMIDE 20 MG/2 ML VIAL IV ONE (17:43)
[2019-05-15] MEDS: ONDANSETRON 4 MG/2 ML VIAL IV PRN (19:17)
[2019-05-15] MEDS: ENOXAPARIN 30 MG/0.3 ML SYRINGE SUBCUT SCH (21:44)
[2019-05-15] MEDS: DONEPEZIL 10 MG TABLET PEG SCH (21:45)
[2019-05-15] MEDS: MIRTAZAPINE 15 MG TABLET PEG SCH (21:45)
[2019-05-16] MEDS: INSULIN REGULAR 100 UNIT/ML SUBCUT SCH ×4 (00:49→18:38)
[2019-05-16] MEDS: ONDANSETRON 4 MG/2 ML VIAL IV PRN (03:16)
[2019-05-16] MEDS: cloNIDine 0.1 MG TABLET PEG SCH ×3 (05:35→19:35)
[2019-05-16 06:29] LABS: Hematocrit 30.4 VOL% (42.0-52.0); Hemoglobin 8.3 GM/DL (14.0-18.0)
[2019-05-16] MEDS ORDERED: METOCLOPRAMIDE 10 MG/2 ML VIAL IV ONE (07:14)
[2019-05-16] MEDS ORDERED: ETOMIDATE 20 MG/10 ML VIAL IV ONE ×2 (07:50→08:00)
[2019-05-16] MEDS ORDERED: SUCCINYLCHOLINE 200 MG/10 ML VIAL ONE (07:51)
[2019-05-16] MEDS ORDERED: SUCCINYLCHOLINE 200 MG/10 ML VIAL IV ONE (08:01)
[2019-05-16] MEDS: CLOPIDOGREL 75 MG TABLET PEG SCH (09:38)
[2019-05-16] MEDS: INSULIN NPH 100 UNIT/ML SUBCUT SCH ×2 (10:02→17:48)
[2019-05-16] MEDS: METOPROLOL TARTRATE 25 MG TABLET PEG SCH ×2 (10:03→19:35)
[2019-05-16] MEDS: ACETAMINOPHEN 325 MG TABLET PEG SCH (10:03)
[2019-05-16] MEDS: amLODIPine 10 MG TABLET PEG SCH (10:03)
[2019-05-16] MEDS: THIAMINE 200 MG/2 ML VIAL IV SCH (10:04)
[2019-05-16] MEDS: PANTOPRAZOLE 40 MG VIAL IV SCH (10:04)
[2019-05-16 10:08] LABS: ABG Base Excess 1.9 MMOL/L (-2.5-2.5); ABG HCO3 26.1 MMOL/L (20-26); ABG Oxygen Saturation 99.9 % (95-100); ABG PCO2 44.7 MM HG (35-48); ABG PH 7.391 (7.35-7.45); ABG TCO2 25.2 MMOL/L (23-27); Pt O2 Delivery Device Ventilator
[2019-05-16] MEDS: FEBUXOSTAT 80 MG TABLET PEG SCH (11:08)
[2019-05-16] MEDS: BRIMONIDINE 0.1% OPH SOLN 5 ML BOTTLE BOTH EYES SCH ×2 (11:38→20:01)
[2019-05-16 16:57] LABS: Amorphous Crystals,Urine Few /HPF (Few); Apearance,Urine CLEAR (Clear); Bacteria,Urine Occasional /HPF (Few); Bilirubin,Urine Negative (Negative); Blood, Urine Negative (Negative); Glucose,Urine (UA) Negative (Negative); Ketones,Urine Negative (Negative); Nitrite,Urine Negative (Negative); Protein,Urine 100 MG/DL; RBC,Urine 2 /HPF (0-4); Squamous Epithelial Cell,Urine Occasional /HPF (0-10); Urine Color Yellow (Yellow); Urine Specific Gravity 1.014 (1.001-1.035); Urine Urobilinogen < 2.0 EU/DL (0.2-1.0); WBC,Urine 2 /HPF (0-6)
[2019-05-16 17:18] LABS: Calcium 7.9 MG/DL (8.5-10.1); Osmolality,Calculated 385.1 MOS/KG (273-304)
[2019-05-16] MEDS: DEXTROSE 5% 1,000 ML IV SCH (17:49)
[2019-05-16] MEDS: DONEPEZIL 10 MG TABLET PEG SCH (20:01)
[2019-05-16] MEDS: ENOXAPARIN 30 MG/0.3 ML SYRINGE SUBCUT SCH (20:01)
[2019-05-16] MEDS: MIRTAZAPINE 15 MG TABLET PEG SCH (20:01)
[2019-05-17] MEDS: INSULIN REGULAR 100 UNIT/ML SUBCUT SCH ×4 (00:26→17:42)
[2019-05-17 02:59] LABS: ABG Base Excess -2.7 MMOL/L (-2.5-2.5); ABG HCO3 22.2 MMOL/L (20-26); ABG Oxygen Saturation 98.9 % (95-100); ABG PCO2 38.5 MM HG (35-48); ABG PH 7.378 (7.35-7.45); ABG PO2 252.7 MM HG (80-95); ABG TCO2 23.3 MMOL/L (23-27); Allen Test Positive; Pt O2 Delivery Device Ventilator
[2019-05-17 04:44] LABS: Calcium 7.3 MG/DL (8.5-10.1); Osmolality,Calculated 370.5 MOS/KG (273-304); Prealbumin 32.7 MG/DL (20-40)
[2019-05-17 04:48] LABS: Basophils % 0.2 % (0.0-0.8); Eosinophils # 0.2 10*3/uL (0.0-0.87); Eosinophils % 2.3 % (0.00-10.9); Hematocrit 25.6 VOL% (42.0-52.0); Immature Granulocytes % 0.6 %; Immature Granulocytes Absolute 0.04 #; Lymphocytes # 1.4 10*3/uL (1.4-4.0); Lymphocytes % 22.3 % (21.2-54.2); Mean Corpuscular HGB Conc 27.3 GM/DL (32-36); Mean Corpuscular Volume 94.8 FL (87-102); Monocytes % 9.8 % (1.7-12.7); NRBC # 0.09 10*3/uL; Neutrophils % 64.8 % (38.7-73.9); Platelet Count 86 T/CUMM (130-400); Red Cell Distribution Width 20.7 % (9.3-17.3); White Blood Count 6.4 T/CUMM (4-12)
[2019-05-17 05:11] LABS: Band Neutrophils 19 % (0-10); Hypochromasia 2+; Lymphocytes 23 % (20-55); Metamyelocytes 1 %; Platelet Estimate Decreased; Segmented Neutrophils 47 % (50-85); Total Cells Counted 100
[2019-05-17] MEDS: cloNIDine 0.1 MG TABLET PEG SCH (06:17)
[2019-05-17] MEDS: DEXTROSE 5% 1,000 ML IV SCH (07:09)
[2019-05-17] MEDS: INSULIN NPH 100 UNIT/ML SUBCUT SCH ×2 (09:27→17:42)
[2019-05-17] MEDS: METOPROLOL TARTRATE 25 MG TABLET PEG SCH ×2 (09:28→21:23)
[2019-05-17] MEDS: BRIMONIDINE 0.1% OPH SOLN 5 ML BOTTLE BOTH EYES SCH ×2 (09:28→21:22)
[2019-05-17] MEDS: ACETAMINOPHEN 325 MG TABLET PEG SCH (09:28)
[2019-05-17] MEDS: CLOPIDOGREL 75 MG TABLET PEG SCH (09:28)
[2019-05-17] MEDS: FEBUXOSTAT 80 MG TABLET PEG SCH (09:29)
[2019-05-17] MEDS: amLODIPine 10 MG TABLET PEG SCH (09:29)
[2019-05-17] MEDS: PANTOPRAZOLE 40 MG VIAL IV SCH (09:29)
[2019-05-17 10:25] LABS: Calcium 7.2 MG/DL (8.5-10.1)
[2019-05-17] MEDS: SODIUM BICARB INJ 100 MEQ in DEXTROSE 5% 1,000 ML IV SCH (13:53)
[2019-05-17 15:42] LABS: Calcium 7.2 MG/DL (8.5-10.1); Osmolality,Calculated 358.2 MOS/KG (273-304)
[2019-05-17] MEDS: DONEPEZIL 10 MG TABLET PEG SCH (21:22)
[2019-05-17] MEDS: MIRTAZAPINE 15 MG TABLET PEG SCH (21:22)
[2019-05-17 22:53] LABS: Calcium 7.2 MG/DL (8.5-10.1); Osmolality,Calculated 350.4 MOS/KG (273-304)
[2019-05-18] MEDS: INSULIN REGULAR 100 UNIT/ML SUBCUT SCH ×4 (01:11→17:27)
[2019-05-18 05:32] LABS: ABG Base Excess -0.2 MMOL/L (-2.5-2.5); ABG HCO3 24.5 MMOL/L (20-26); ABG Oxygen Saturation 99.1 % (95-100); ABG PCO2 40.1 MM HG (35-48); ABG PH 7.404 (7.35-7.45); ABG PO2 172.6 MM HG (80-95); ABG TCO2 25.7 MMOL/L (23-27); Allen Test Positive; Pt O2 Delivery Device Ventilator
[2019-05-18 07:45] LABS: Basophils % 0.1 % (0.0-0.8); Eosinophils # 0.2 10*3/uL (0.0-0.87); Eosinophils % 3.4 % (0.00-10.9); Hematocrit 23.3 VOL% (42.0-52.0); Hemoglobin 6.5 GM/DL (14.0-18.0); Immature Granulocytes % 0.4 %; Immature Granulocytes Absolute 0.03 #; Lymphocytes # 1.5 10*3/uL (1.4-4.0); Lymphocytes % 22.7 % (21.2-54.2); Mean Corpuscular HGB Conc 27.9 GM/DL (32-36); Mean Corpuscular Volume 92.5 FL (87-102); NRBC # 0.05 10*3/uL; Neutrophils % 63.4 % (38.7-73.9); Red Blood Count 2.52 MC/CUMM (3.8-5.5); Red Cell Distribution Width 20.1 % (9.3-17.3); White Blood Count 6.7 T/CUMM (4-12)
[2019-05-18 07:48] LABS: Platelet Count 71 T/CUMM (130-400)
[2019-05-18 07:58] LABS: Calcium 7.3 MG/DL (8.5-10.1); Osmolality,Calculated 349.4 MOS/KG (273-304)
[2019-05-18 08:03] LABS: Band Neutrophils 1 % (0-10); Eosinophils 5 % (0-10); Hypochromasia 2+; Lymphocytes 16 % (20-55); Nucleated Red Blood Cells 1 (0-5); Ovalocytes Slight; Platelet Estimate Decreased; Segmented Neutrophils 71 % (50-85); Total Cells Counted 100
[2019-05-18 08:04] LABS: Microcytosis 1+
[2019-05-18] MEDS: INSULIN NPH 100 UNIT/ML SUBCUT SCH ×2 (08:56→17:27)
[2019-05-18] MEDS: CLOPIDOGREL 75 MG TABLET PEG SCH (08:57)
[2019-05-18] MEDS: METOPROLOL TARTRATE 25 MG TABLET PEG SCH ×2 (08:57→20:51)
[2019-05-18] MEDS: ACETAMINOPHEN 325 MG TABLET PEG SCH (08:57)
[2019-05-18] MEDS: FEBUXOSTAT 80 MG TABLET PEG SCH (08:57)
[2019-05-18] MEDS: BRIMONIDINE 0.1% OPH SOLN 5 ML BOTTLE BOTH EYES SCH ×2 (08:58→20:48)
[2019-05-18] MEDS: PANTOPRAZOLE 40 MG VIAL IV SCH (08:58)
[2019-05-18] MEDS: SODIUM BICARB INJ 100 MEQ in DEXTROSE 5% 1,000 ML IV SCH (10:33)
[2019-05-18] MEDS ORDERED: SODIUM CHLORIDE 0.9% 1,000 ML IV PRN (11:44)
[2019-05-18 12:56] LABS: Calcium 7.1 MG/DL (8.5-10.1); Osmolality,Calculated 346.4 MOS/KG (273-304)
[2019-05-18] MEDS: MENTHOL/ZINC OXIDE OINT 71 GM JAR TOP SCH ×2 (13:04→20:49)
[2019-05-18 19:37] LABS: Calcium 7.6 MG/DL (8.5-10.1); Osmolality,Calculated 330.3 MOS/KG (273-304)
[2019-05-18] MEDS: DONEPEZIL 10 MG TABLET PEG SCH (20:50)
[2019-05-18] MEDS: ATORVASTATIN 80 MG TABLET PEG SCH (20:50)
[2019-05-18] MEDS: CITALOPRAM 20 MG TABLET PEG SCH (20:50)
[2019-05-18] MEDS: MIRTAZAPINE 15 MG TABLET PEG SCH (20:51)
[2019-05-18] MEDS: INSULIN GLARGINE 100 UNIT/ML SUBCUT SCH (21:40)
[2019-05-19 02:12] LABS: Basophils % 0.1 % (0.0-0.8); Eosinophils # 0.3 10*3/uL (0.0-0.87); Eosinophils % 3.8 % (0.00-10.9); Hematocrit 28.8 VOL% (42.0-52.0); Hemoglobin 8.5 GM/DL (14.0-18.0); Immature Granulocytes % 0.6 %; Immature Granulocytes Absolute 0.04 #; Lymphocytes # 1.3 10*3/uL (1.4-4.0); Lymphocytes % 18.1 % (21.2-54.2); Mean Corpuscular HGB Conc 29.5 GM/DL (32-36); Mean Corpuscular Volume 88.3 FL (87-102); Monocytes % 9.4 % (1.7-12.7); NRBC # 0.05 10*3/uL; Red Blood Count 3.26 MC/CUMM (3.8-5.5); Red Cell Distribution Width 18.2 % (9.3-17.3); White Blood Count 7.1 T/CUMM (4-12)
[2019-05-19 02:15] LABS: Platelet Count 84 T/CUMM (130-400)
[2019-05-19 02:29] LABS: Calcium 7.6 MG/DL (8.5-10.1); Osmolality,Calculated 336.1 MOS/KG (273-304)
[2019-05-19] MEDS: INSULIN REGULAR 100 UNIT/ML SUBCUT SCH ×4 (02:40→18:55)
[2019-05-19 03:55] LABS: Band Neutrophils 5 % (0-10); Eosinophils 6 % (0-10); Hypochromasia 1+; Lymphocytes 13 % (20-55); Microcytosis 1+; Nucleated Red Blood Cells 1 (0-5); Ovalocytes Slight; Promyelocytes 1 %; Segmented Neutrophils 71 % (50-85); Total Cells Counted 100
[2019-05-19 03:56] LABS: Polychromasia Slight
[2019-05-19 04:02] LABS: Allen Test Positive; Pt O2 Delivery Device Ventilator
[2019-05-19 04:03] LABS: ABG Base Excess 0.9 MMOL/L (-2.5-2.5); ABG HCO3 24.9 MMOL/L (20-26); ABG Oxygen Saturation 98.4 % (95-100); ABG PCO2 36.8 MM HG (35-48); ABG PH 7.448 (7.35-7.45); ABG PO2 141.9 MM HG (80-95)
[2019-05-19 08:04] LABS: Calcium 7.5 MG/DL (8.5-10.1); Osmolality,Calculated 329.6 MOS/KG (273-304)
[2019-05-19] MEDS: INSULIN NPH 100 UNIT/ML SUBCUT SCH ×2 (08:32→17:40)
[2019-05-19] MEDS: FEBUXOSTAT 80 MG TABLET PEG SCH (08:33)
[2019-05-19] MEDS: ACETAMINOPHEN 325 MG TABLET PEG SCH (08:33)
[2019-05-19] MEDS: ASPIRIN CHEW 81 MG TABLET PO SCH (08:33)
[2019-05-19] MEDS: CLOPIDOGREL 75 MG TABLET PEG SCH (08:34)
[2019-05-19] MEDS: METOPROLOL TARTRATE 25 MG TABLET PEG SCH ×2 (08:34→20:36)
[2019-05-19] MEDS: PANTOPRAZOLE 40 MG VIAL IV SCH (08:34)
[2019-05-19] MEDS: MENTHOL/ZINC OXIDE OINT 71 GM JAR TOP SCH ×2 (08:35→20:38)
[2019-05-19] MEDS: BRIMONIDINE 0.1% OPH SOLN 5 ML BOTTLE BOTH EYES SCH ×2 (08:35→20:37)
[2019-05-19] MEDS: SODIUM BICARB INJ 100 MEQ in DEXTROSE 5% 1,000 ML IV SCH (08:35)
[2019-05-19] MEDS: SODIUM BICARB INJ 100 MEQ in STERILE WATER INJ 1,000 ML IV SCH (10:30)
[2019-05-19 13:50] LABS: Calcium 7.8 MG/DL (8.5-10.1); Osmolality,Calculated 321.7 MOS/KG (273-304)
[2019-05-19] MEDS: ATORVASTATIN 80 MG TABLET PEG SCH (20:36)
[2019-05-19] MEDS: DONEPEZIL 10 MG TABLET PEG SCH (20:36)
[2019-05-19] MEDS: CITALOPRAM 20 MG TABLET PEG SCH (20:36)
[2019-05-19] MEDS: MIRTAZAPINE 15 MG TABLET PEG SCH (20:36)
[2019-05-19] MEDS: INSULIN GLARGINE 100 UNIT/ML SUBCUT SCH (20:37)
[2019-05-20] MEDS: INSULIN REGULAR 100 UNIT/ML SUBCUT SCH ×4 (00:33→18:33)
[2019-05-20] MEDS: ACETAMINOPHEN 325 MG/10.15 ML UDCUP PO PRN (00:33)
[2019-05-20 03:33] LABS: ABG Base Excess 4.5 MMOL/L (-2.5-2.5); ABG HCO3 28.5 MMOL/L (20-26); ABG Oxygen Saturation 99.1 % (95-100); ABG PCO2 35.4 MM HG (35-48); ABG PH 7.502 (7.35-7.45); ABG TCO2 25.6 MMOL/L (23-27); Allen Test Positive; Pt O2 Delivery Device Ventilator
[2019-05-20 04:54] LABS: Basophils % 0.2 % (0.0-0.8); Eosinophils # 0.2 10*3/uL (0.0-0.87); Eosinophils % 4.9 % (0.00-10.9); Hemoglobin 8.5 GM/DL (14.0-18.0); Immature Granulocytes % 0.8 %; Immature Granulocytes Absolute 0.04 #; Lymphocytes % 21.1 % (21.2-54.2); Mean Corpuscular HGB Conc 30.4 GM/DL (32-36); Mean Corpuscular Volume 86.7 FL (87-102); Monocytes % 11.8 % (1.7-12.7); Neutrophils % 61.2 % (38.7-73.9); Platelet Count 88 T/CUMM (130-400); Red Blood Count 3.23 MC/CUMM (3.8-5.5); Red Cell Distribution Width 17.6 % (9.3-17.3); White Blood Count 4.9 T/CUMM (4-12)
[2019-05-20 05:18] LABS: Eosinophils 8 % (0-10); Lymphocytes 18 % (20-55); Platelet Estimate Decreased; Segmented Neutrophils 65 % (50-85); Total Cells Counted 100
[2019-05-20 05:19] LABS: Hypochromasia 1+; Microcytosis 1+
[2019-05-20 05:23] LABS: Calcium 7.8 MG/DL (8.5-10.1); Osmolality,Calculated 310.7 MOS/KG (273-304)
[2019-05-20] MEDS: INSULIN NPH 100 UNIT/ML SUBCUT SCH ×2 (08:38→16:37)
[2019-05-20] MEDS: ACETAMINOPHEN 325 MG TABLET PEG SCH (08:44)
[2019-05-20] MEDS: ASPIRIN CHEW 81 MG TABLET PO SCH (08:44)
[2019-05-20] MEDS: METOPROLOL TARTRATE 25 MG TABLET PEG SCH ×2 (08:44→20:34)
[2019-05-20] MEDS: amLODIPine 10 MG TABLET PEG SCH (08:44)
[2019-05-20] MEDS: CLOPIDOGREL 75 MG TABLET PEG SCH (08:44)
[2019-05-20] MEDS: FEBUXOSTAT 80 MG TABLET PEG SCH (08:44)
[2019-05-20] MEDS: FAMOTIDINE 20 MG/2 ML VIAL IV SCH (08:46)
[2019-05-20] MEDS: MENTHOL/ZINC OXIDE OINT 71 GM JAR TOP SCH ×2 (08:46→20:35)
[2019-05-20] MEDS: BRIMONIDINE 0.1% OPH SOLN 5 ML BOTTLE BOTH EYES SCH ×2 (08:46→20:35)
[2019-05-20] MEDS: SODIUM BICARB INJ 100 MEQ in STERILE WATER INJ 1,000 ML IV SCH (08:49)
[2019-05-20] MEDS ORDERED: POTASSIUM CHLORIDE 20 MEQ/15 ML UDCUP PER TUBE ONE (09:19)
[2019-05-20] MEDS ORDERED: VANCOMYCIN INJ 1,250 MG in SODIUM CHLORIDE 0.9% 250 ML IV PRN (13:53)
[2019-05-20] MEDS ORDERED: VANCOMYCIN INJ 1,500 MG in SODIUM CHLORIDE 0.9% 500 ML IV ONE (14:00)
[2019-05-20] MEDS: PIPERACILLIN/TAZOBACTAM 3,375 MG in SODIUM CHLORIDE 0.9% 100 ML IV SCH (14:12)
[2019-05-20] MEDS: MIRTAZAPINE 15 MG TABLET PEG SCH (20:34)
[2019-05-20] MEDS: DONEPEZIL 10 MG TABLET PEG SCH (20:34)
[2019-05-20] MEDS: CITALOPRAM 20 MG TABLET PEG SCH (20:34)
[2019-05-20] MEDS: ATORVASTATIN 80 MG TABLET PEG SCH (20:34)
[2019-05-20] MEDS: INSULIN GLARGINE 100 UNIT/ML SUBCUT SCH (20:35)
[2019-05-21] MEDS: INSULIN REGULAR 100 UNIT/ML SUBCUT SCH ×4 (00:01→17:48)
[2019-05-21] MEDS: ACETAMINOPHEN 325 MG/10.15 ML UDCUP PO PRN (00:02)
[2019-05-21] MEDS: PIPERACILLIN/TAZOBACTAM 3,375 MG in SODIUM CHLORIDE 0.9% 100 ML IV SCH ×2 (02:17→13:18)
[2019-05-21 02:47] LABS: ABG Base Excess 2.6 MMOL/L (-2.5-2.5); ABG HCO3 26.8 MMOL/L (20-26); ABG Oxygen Saturation 99.4 % (95-100); ABG PCO2 35.9 MM HG (35-48); ABG PH 7.471 (7.35-7.45); ABG TCO2 24.4 MMOL/L (23-27); Allen Test Positive; Pt O2 Delivery Device Ventilator
[2019-05-21] MEDS: INSULIN NPH 100 UNIT/ML SUBCUT SCH ×2 (08:15→17:48)
[2019-05-21] MEDS: METOPROLOL TARTRATE 25 MG TABLET PEG SCH ×2 (08:16→21:41)
[2019-05-21] MEDS: CLOPIDOGREL 75 MG TABLET PEG SCH (08:16)
[2019-05-21] MEDS: ASPIRIN CHEW 81 MG TABLET PO SCH (08:16)
[2019-05-21] MEDS: amLODIPine 10 MG TABLET PEG SCH (08:16)
[2019-05-21] MEDS: FEBUXOSTAT 80 MG TABLET PEG SCH (08:16)
[2019-05-21] MEDS: BRIMONIDINE 0.1% OPH SOLN 5 ML BOTTLE BOTH EYES SCH ×2 (08:17→21:41)
[2019-05-21] MEDS: ACETAMINOPHEN 325 MG TABLET PEG SCH (08:17)
[2019-05-21] MEDS: MENTHOL/ZINC OXIDE OINT 71 GM JAR TOP SCH ×2 (08:17→21:40)
[2019-05-21] MEDS: FAMOTIDINE 20 MG/2 ML VIAL IV SCH (08:17)
[2019-05-21] MEDS: LORazepam 2 MG/1 ML VIAL IV PRN (13:17)
[2019-05-21] MEDS: DONEPEZIL 10 MG TABLET PEG SCH (21:39)
[2019-05-21] MEDS: CITALOPRAM 20 MG TABLET PEG SCH (21:40)
[2019-05-21] MEDS: ATORVASTATIN 80 MG TABLET PEG SCH (21:40)
[2019-05-21] MEDS: MIRTAZAPINE 15 MG TABLET PEG SCH (21:41)
[2019-05-21] MEDS: INSULIN GLARGINE 100 UNIT/ML SUBCUT SCH (22:46)
[2019-05-22] MEDS: INSULIN REGULAR 100 UNIT/ML SUBCUT SCH ×4 (00:46→17:26)
[2019-05-22] MEDS: PIPERACILLIN/TAZOBACTAM 3,375 MG in SODIUM CHLORIDE 0.9% 100 ML IV SCH ×2 (01:34→13:30)
[2019-05-22 05:11] LABS: Basophils % 0.2 % (0.0-0.8); Eosinophils # 0.2 10*3/uL (0.0-0.87); Eosinophils % 4.2 % (0.00-10.9); Hematocrit 29.1 VOL% (42.0-52.0); Hemoglobin 8.6 GM/DL (14.0-18.0); Immature Granulocytes % 0.8 %; Immature Granulocytes Absolute 0.04 #; Lymphocytes % 18.8 % (21.2-54.2); Mean Corpuscular HGB Conc 29.6 GM/DL (32-36); Mean Corpuscular Volume 87.9 FL (87-102); Mean Platelet Volume 13.5 FL (9.6-12.0); Monocytes % 11.4 % (1.7-12.7); Neutrophils % 64.6 % (38.7-73.9); Platelet Count 115 T/CUMM (130-400); Red Blood Count 3.31 MC/CUMM (3.8-5.5); Red Cell Distribution Width 17.2 % (9.3-17.3); White Blood Count 5.3 T/CUMM (4-12)
[2019-05-22 05:45] LABS: Calcium 8.2 MG/DL (8.5-10.1); Osmolality,Calculated 298.3 MOS/KG (273-304)
[2019-05-22 06:11] LABS: ABG Base Excess 0.9 MMOL/L (-2.5-2.5); ABG HCO3 25.3 MMOL/L (20-26); ABG PH 7.428 (7.35-7.45); ABG TCO2 22.4 MMOL/L (23-27); Pt O2 Delivery Device Ventilator
[2019-05-22] MEDS: INSULIN NPH 100 UNIT/ML SUBCUT SCH ×2 (07:13→17:26)
[2019-05-22] MEDS: amLODIPine 10 MG TABLET PEG SCH (08:33)
[2019-05-22] MEDS: MENTHOL/ZINC OXIDE OINT 71 GM JAR TOP SCH ×2 (08:33→20:50)
[2019-05-22] MEDS: BRIMONIDINE 0.1% OPH SOLN 5 ML BOTTLE BOTH EYES SCH (08:33)
[2019-05-22] MEDS: ASPIRIN CHEW 81 MG TABLET PO SCH (08:33)
[2019-05-22] MEDS: FEBUXOSTAT 80 MG TABLET PEG SCH (08:33)
[2019-05-22] MEDS: ACETAMINOPHEN 325 MG TABLET PEG SCH (08:34)
[2019-05-22] MEDS: METOPROLOL TARTRATE 25 MG TABLET PEG SCH ×2 (08:34→20:49)
[2019-05-22] MEDS: CLOPIDOGREL 75 MG TABLET PEG SCH (08:34)
[2019-05-22] MEDS: FAMOTIDINE 20 MG/2 ML VIAL IV SCH (08:34)
[2019-05-22] MEDS ORDERED: VANCOMYCIN INJ 1,250 MG in SODIUM CHLORIDE 0.9% 250 ML IV ONE ×2 (13:00→14:30)
[2019-05-22] MEDS: DONEPEZIL 10 MG TABLET PEG SCH (20:49)
[2019-05-22] MEDS: CITALOPRAM 20 MG TABLET PEG SCH (20:49)
[2019-05-22] MEDS: ATORVASTATIN 80 MG TABLET PEG SCH (20:50)
[2019-05-22] MEDS: MIRTAZAPINE 15 MG TABLET PEG SCH (20:50)
[2019-05-23] MEDS: BRIMONIDINE 0.1% OPH SOLN 5 ML BOTTLE BOTH EYES SCH ×3 (01:11→21:29)
[2019-05-23] MEDS: INSULIN REGULAR 100 UNIT/ML SUBCUT SCH ×4 (01:11→18:01)
[2019-05-23] MEDS: INSULIN GLARGINE 100 UNIT/ML SUBCUT SCH ×2 (01:17→21:50)
[2019-05-23] MEDS: PIPERACILLIN/TAZOBACTAM 3,375 MG in SODIUM CHLORIDE 0.9% 100 ML IV SCH ×2 (01:18→13:25)
[2019-05-23 04:35] LABS: ABG Base Excess 1.3 MMOL/L (-2.5-2.5); ABG HCO3 25.6 MMOL/L (20-26); ABG Oxygen Saturation 99.2 % (95-100); ABG PCO2 34.8 MM HG (35-48); ABG PH 7.461 (7.35-7.45); ABG TCO2 22.3 MMOL/L (23-27); Allen Test Positive; Pt O2 Delivery Device Ventilator
[2019-05-23 04:56] LABS: Basophils % 0.3 % (0.0-0.8); Eosinophils # 0.2 10*3/uL (0.0-0.87); Eosinophils % 4.2 % (0.00-10.9); Hematocrit 27.3 VOL% (42.0-52.0); Hemoglobin 8.3 GM/DL (14.0-18.0); Immature Granulocytes % 0.3 %; Immature Granulocytes Absolute 0.02 #; Lymphocytes # 1.3 10*3/uL (1.4-4.0); Lymphocytes % 22.8 % (21.2-54.2); Mean Corpuscular HGB Conc 30.4 GM/DL (32-36); Mean Corpuscular Volume 86.1 FL (87-102); Mean Platelet Volume 12.7 FL (9.6-12.0); Monocytes % 10.3 % (1.7-12.7); Neutrophils % 62.1 % (38.7-73.9); Platelet Count 143 T/CUMM (130-400); Red Blood Count 3.17 MC/CUMM (3.8-5.5); Red Cell Distribution Width 16.9 % (9.3-17.3); White Blood Count 5.8 T/CUMM (4-12)
[2019-05-23 05:11] LABS: Calcium 8.1 MG/DL (8.5-10.1); Osmolality,Calculated 291.5 MOS/KG (273-304)
[2019-05-23] MEDS: INSULIN NPH 100 UNIT/ML SUBCUT SCH ×2 (09:19→18:01)
[2019-05-23] MEDS: CLOPIDOGREL 75 MG TABLET PEG SCH (09:20)
[2019-05-23] MEDS: ASPIRIN CHEW 81 MG TABLET PO SCH (09:20)
[2019-05-23] MEDS: METOPROLOL TARTRATE 25 MG TABLET PEG SCH ×2 (09:20→21:27)
[2019-05-23] MEDS: MENTHOL/ZINC OXIDE OINT 71 GM JAR TOP SCH ×2 (09:21→21:29)
[2019-05-23] MEDS: amLODIPine 10 MG TABLET PEG SCH (09:21)
[2019-05-23] MEDS: FEBUXOSTAT 80 MG TABLET PEG SCH (09:21)
[2019-05-23] MEDS: ACETAMINOPHEN 325 MG TABLET PEG SCH (09:21)
[2019-05-23] MEDS: FAMOTIDINE 20 MG/2 ML VIAL IV SCH (09:22)
[2019-05-23] MEDS: SCOPOLAMINE 1.5 MG PATCH TRANSDERM SCH (15:00)
[2019-05-23] MEDS: BUDESONIDE 0.5 MG/2 ML NEB RESP TX SCH (20:11)
[2019-05-23] MEDS: IPRATROPIUM 500 MCG/2.5 ML NEB RESP TX SCH (20:11)
[2019-05-23] MEDS: CITALOPRAM 20 MG TABLET PEG SCH (21:27)
[2019-05-23] MEDS: DONEPEZIL 10 MG TABLET PEG SCH (21:27)
[2019-05-23] MEDS: MIRTAZAPINE 15 MG TABLET PEG SCH (21:28)
[2019-05-23] MEDS: ATORVASTATIN 80 MG TABLET PEG SCH (21:28)
[2019-05-24] MEDS: INSULIN REGULAR 100 UNIT/ML SUBCUT SCH ×5 (00:26→23:58)
[2019-05-24] MEDS: PIPERACILLIN/TAZOBACTAM 3,375 MG in SODIUM CHLORIDE 0.9% 100 ML IV SCH ×2 (01:30→17:01)
[2019-05-24] MEDS: IPRATROPIUM 500 MCG/2.5 ML NEB RESP TX SCH ×4 (02:15→20:25)
[2019-05-24 02:49] LABS: ABG Base Excess 0.3 MMOL/L (-2.5-2.5); ABG HCO3 24.7 MMOL/L (20-26); ABG Oxygen Saturation 99.2 % (95-100); ABG PCO2 33.4 MM HG (35-48); ABG PH 7.458 (7.35-7.45); ABG TCO2 21.3 MMOL/L (23-27); Allen Test Positive; Pt O2 Delivery Device Ventilator
[2019-05-24] MEDS: BUDESONIDE 0.5 MG/2 ML NEB RESP TX SCH ×2 (07:07→20:25)
[2019-05-24] MEDS: INSULIN NPH 100 UNIT/ML SUBCUT SCH ×2 (09:00→17:10)
[2019-05-24] MEDS: FEBUXOSTAT 80 MG TABLET PEG SCH (09:01)
[2019-05-24] MEDS: FAMOTIDINE 20 MG/2 ML VIAL IV SCH (09:01)
[2019-05-24] MEDS: ASPIRIN CHEW 81 MG TABLET PO SCH (09:02)
[2019-05-24] MEDS: METOPROLOL TARTRATE 25 MG TABLET PEG SCH ×2 (09:02→20:11)
[2019-05-24] MEDS: amLODIPine 10 MG TABLET PEG SCH (09:02)
[2019-05-24] MEDS: ACETAMINOPHEN 325 MG TABLET PEG SCH (09:02)
[2019-05-24] MEDS: CLOPIDOGREL 75 MG TABLET PEG SCH (09:03)
[2019-05-24] MEDS: MENTHOL/ZINC OXIDE OINT 71 GM JAR TOP SCH ×2 (09:03→20:12)
[2019-05-24] MEDS: BRIMONIDINE 0.1% OPH SOLN 5 ML BOTTLE BOTH EYES SCH ×2 (09:04→20:12)
[2019-05-24] MEDS ORDERED: VANCOMYCIN INJ 1,250 MG in SODIUM CHLORIDE 0.9% 250 ML IV ONE (09:30)
[2019-05-24] MEDS ORDERED: ALBUTEROL/IPRATROPIUM 3 ML NEB RESP TX ONE (11:45)
[2019-05-24] MEDS ORDERED: ALBUTEROL/IPRATROPIUM 3 ML NEB RESP TX PRN (11:51)
[2019-05-24] MEDS ORDERED: FUROSEMIDE 40 MG/4 ML VIAL IV ONE ×2 (11:58→16:00)
[2019-05-24] MEDS ORDERED: ETOMIDATE 20 MG/10 ML VIAL IV ONE (12:42)
[2019-05-24] MEDS ORDERED: SUCCINYLCHOLINE 200 MG/10 ML VIAL ONE (12:42)
[2019-05-24 13:38] LABS: ABG Base Excess -1.3 MMOL/L (-2.5-2.5); ABG HCO3 23.4 MMOL/L (20-26); ABG PCO2 42.7 MM HG (35-48); ABG TCO2 22.5 MMOL/L (23-27); Pt O2 Delivery Device Ventilator
[2019-05-24] MEDS: DONEPEZIL 10 MG TABLET PEG SCH (20:11)
[2019-05-24] MEDS: MIRTAZAPINE 15 MG TABLET PEG SCH (20:11)
[2019-05-24] MEDS: INSULIN GLARGINE 100 UNIT/ML SUBCUT SCH (20:11)
[2019-05-24] MEDS: ATORVASTATIN 80 MG TABLET PEG SCH (20:11)
[2019-05-24] MEDS: CITALOPRAM 20 MG TABLET PEG SCH (20:11)
[2019-05-24] MEDS: LORazepam 2 MG/1 ML VIAL IV PRN (20:12)
[2019-05-25] MEDS: IPRATROPIUM 500 MCG/2.5 ML NEB RESP TX SCH (01:02)
[2019-05-25] MEDS: PIPERACILLIN/TAZOBACTAM 3,375 MG in SODIUM CHLORIDE 0.9% 100 ML IV SCH ×2 (01:29→14:19)
[2019-05-25 04:40] LABS: ABG HCO3 25.3 MMOL/L (20-26); ABG Oxygen Saturation 99.5 % (95-100); ABG PCO2 41.3 MM HG (35-48); ABG PH 7.404 (7.35-7.45); ABG TCO2 23.2 MMOL/L (23-27); Allen Test Positive; Pt O2 Delivery Device Ventilator
[2019-05-25] MEDS: INSULIN REGULAR 100 UNIT/ML SUBCUT SCH ×3 (05:30→17:19)
[2019-05-25 05:50] LABS: Calcium 8.1 MG/DL (8.5-10.1); Osmolality,Calculated 289.7 MOS/KG (273-304)
[2019-05-25] MEDS: BUDESONIDE 0.5 MG/2 ML NEB RESP TX SCH ×2 (07:11→19:27)
[2019-05-25] MEDS: ALBUTEROL/IPRATROPIUM 3 ML NEB RESP TX SCH ×5 (07:11→23:37)
[2019-05-25] MEDS: methylPREDNISolone SOD SUC 40 MG/1 ML VIAL IV SCH ×3 (08:23→22:03)
[2019-05-25] MEDS: FAMOTIDINE 20 MG/2 ML VIAL IV SCH (08:24)
[2019-05-25] MEDS: INSULIN NPH 100 UNIT/ML SUBCUT SCH ×2 (08:25→16:16)
[2019-05-25] MEDS: CLOPIDOGREL 75 MG TABLET PEG SCH (08:26)
[2019-05-25] MEDS: FEBUXOSTAT 80 MG TABLET PEG SCH (08:26)
[2019-05-25] MEDS: METOPROLOL TARTRATE 25 MG TABLET PEG SCH ×2 (08:26→20:09)
[2019-05-25] MEDS: amLODIPine 10 MG TABLET PEG SCH (08:27)
[2019-05-25] MEDS: BRIMONIDINE 0.1% OPH SOLN 5 ML BOTTLE BOTH EYES SCH ×2 (08:27→20:09)
[2019-05-25] MEDS: ASPIRIN CHEW 81 MG TABLET PO SCH (08:27)
[2019-05-25] MEDS: MENTHOL/ZINC OXIDE OINT 71 GM JAR TOP SCH ×2 (08:28→20:10)
[2019-05-25] MEDS: ACETAMINOPHEN 325 MG TABLET PEG SCH (08:51)
[2019-05-25] MEDS: DONEPEZIL 10 MG TABLET PEG SCH (20:09)
[2019-05-25] MEDS: CITALOPRAM 20 MG TABLET PEG SCH (20:09)
[2019-05-25] MEDS: INSULIN GLARGINE 100 UNIT/ML SUBCUT SCH (20:09)
[2019-05-25] MEDS: ATORVASTATIN 80 MG TABLET PEG SCH (20:09)
[2019-05-25] MEDS: MIRTAZAPINE 15 MG TABLET PEG SCH (20:09)
[2019-05-26] MEDS: INSULIN REGULAR 100 UNIT/ML SUBCUT SCH ×4 (00:21→18:07)
[2019-05-26] MEDS: PIPERACILLIN/TAZOBACTAM 3,375 MG in SODIUM CHLORIDE 0.9% 100 ML IV SCH ×2 (00:33→13:33)
[2019-05-26 02:31] LABS: ABG Base Excess -0.4 MMOL/L (-2.5-2.5); ABG HCO3 24.2 MMOL/L (20-26); ABG Oxygen Saturation 99.8 % (95-100); ABG PCO2 38.6 MM HG (35-48); ABG PH 7.405 (7.35-7.45); ABG TCO2 22.4 MMOL/L (23-27); Allen Test Positive; Pt O2 Delivery Device Ventilator
[2019-05-26] MEDS: ALBUTEROL/IPRATROPIUM 3 ML NEB RESP TX SCH ×5 (03:23→20:35)
[2019-05-26 05:16] LABS: Basophils % 0.1 % (0.0-0.8); Hematocrit 25.2 VOL% (42.0-52.0); Hemoglobin 7.8 GM/DL (14.0-18.0); Immature Granulocytes % 0.6 %; Immature Granulocytes Absolute 0.05 #; Lymphocytes # 0.6 10*3/uL (1.4-4.0); Lymphocytes % 7.6 % (21.2-54.2); Mean Corpuscular Volume 83.4 FL (87-102); Monocytes % 2.1 % (1.7-12.7); Neutrophils % 89.6 % (38.7-73.9); Platelet Count 301 T/CUMM (130-400); Red Blood Count 3.02 MC/CUMM (3.8-5.5); Red Cell Distribution Width 16.4 % (9.3-17.3); White Blood Count 8.1 T/CUMM (4-12)
[2019-05-26 05:43] LABS: Albumin 1.5 G/DL (3.4-5.0); Bilirubin,Total 1.1 MG/DL (0.2-1.0); Calcium 8.2 MG/DL (8.5-10.1); Osmolality,Calculated 296.7 MOS/KG (273-304); Total Protein 6.1 G/DL (6.4-8.3)
[2019-05-26] MEDS: BUDESONIDE 0.5 MG/2 ML NEB RESP TX SCH ×2 (07:29→20:35)
[2019-05-26] MEDS: INSULIN NPH 100 UNIT/ML SUBCUT SCH ×2 (07:58→16:08)
[2019-05-26] MEDS: ASPIRIN CHEW 81 MG TABLET PO SCH (07:58)
[2019-05-26] MEDS: METOPROLOL TARTRATE 25 MG TABLET PEG SCH ×2 (07:58→20:53)
[2019-05-26] MEDS: ACETAMINOPHEN 325 MG TABLET PEG SCH (07:59)
[2019-05-26] MEDS: MENTHOL/ZINC OXIDE OINT 71 GM JAR TOP SCH ×2 (07:59→20:54)
[2019-05-26] MEDS: amLODIPine 10 MG TABLET PEG SCH (07:59)
[2019-05-26] MEDS: CLOPIDOGREL 75 MG TABLET PEG SCH (07:59)
[2019-05-26] MEDS: BRIMONIDINE 0.1% OPH SOLN 5 ML BOTTLE BOTH EYES SCH ×2 (07:59→20:54)
[2019-05-26] MEDS: FEBUXOSTAT 80 MG TABLET PEG SCH (08:00)
[2019-05-26] MEDS: FAMOTIDINE 20 MG/2 ML VIAL IV SCH (08:00)
[2019-05-26] MEDS: SCOPOLAMINE 1.5 MG PATCH TRANSDERM SCH (08:00)
[2019-05-26] MEDS: methylPREDNISolone SOD SUC 40 MG/1 ML VIAL IV SCH ×2 (09:08→16:08)
[2019-05-26] MEDS ORDERED: VANCOMYCIN INJ 1,250 MG in SODIUM CHLORIDE 0.9% 250 ML IV ONE (11:00)
[2019-05-26] MEDS: MIRTAZAPINE 15 MG TABLET PEG SCH (20:53)
[2019-05-26] MEDS: CITALOPRAM 20 MG TABLET PEG SCH (20:53)
[2019-05-26] MEDS: ATORVASTATIN 80 MG TABLET PEG SCH (20:53)
[2019-05-26] MEDS: DONEPEZIL 10 MG TABLET PEG SCH (20:53)
[2019-05-26] MEDS: INSULIN GLARGINE 100 UNIT/ML SUBCUT SCH (20:54)
[2019-05-27] MEDS: methylPREDNISolone SOD SUC 40 MG/1 ML VIAL IV SCH ×4 (00:14→23:25)
[2019-05-27] MEDS: INSULIN REGULAR 100 UNIT/ML SUBCUT SCH ×5 (00:15→23:35)
[2019-05-27] MEDS: ALBUTEROL/IPRATROPIUM 3 ML NEB RESP TX SCH ×6 (00:38→19:49)
[2019-05-27] MEDS: PIPERACILLIN/TAZOBACTAM 3,375 MG in SODIUM CHLORIDE 0.9% 100 ML IV SCH ×2 (01:02→15:24)
[2019-05-27 04:11] LABS: ABG Base Excess -1.7 MMOL/L (-2.5-2.5); ABG HCO3 22.6 MMOL/L (20-26); ABG Oxygen Saturation 98.4 % (95-100); ABG PCO2 36.1 MM HG (35-48); ABG PH 7.415 (7.35-7.45); ABG PO2 165.6 MM HG (80-95); ABG TCO2 23.7 MMOL/L (23-27); Allen Test Positive; Pt O2 Delivery Device Ventilator
[2019-05-27 05:06] LABS: Calcium 7.7 MG/DL (8.5-10.1); Osmolality,Calculated 305.7 MOS/KG (273-304)
[2019-05-27 05:25] LABS: Basophils % 0.1 % (0.0-0.8); Hematocrit 19.3 VOL% (42.0-52.0); Immature Granulocytes % 0.8 %; Immature Granulocytes Absolute 0.09 #; Lymphocytes # 0.9 10*3/uL (1.4-4.0); Lymphocytes % 8.2 % (21.2-54.2); Mean Corpuscular HGB Conc 31.1 GM/DL (32-36); Mean Corpuscular Volume 83.5 FL (87-102); Monocytes % 3.6 % (1.7-12.7); Neutrophils % 87.3 % (38.7-73.9); Platelet Count 334 T/CUMM (130-400); Red Blood Count 2.31 MC/CUMM (3.8-5.5); Red Cell Distribution Width 16.5 % (9.3-17.3); White Blood Count 11.4 T/CUMM (4-12)
[2019-05-27] MEDS: BUDESONIDE 0.5 MG/2 ML NEB RESP TX SCH ×2 (07:41→19:49)
[2019-05-27] MEDS: FAMOTIDINE 20 MG/2 ML VIAL IV SCH (08:54)
[2019-05-27] MEDS: CLOPIDOGREL 75 MG TABLET PEG SCH (08:55)
[2019-05-27] MEDS: FEBUXOSTAT 80 MG TABLET PEG SCH (08:55)
[2019-05-27] MEDS: INSULIN NPH 100 UNIT/ML SUBCUT SCH ×2 (08:55→15:30)
[2019-05-27] MEDS: METOPROLOL TARTRATE 25 MG TABLET PEG SCH ×2 (08:55→23:25)
[2019-05-27] MEDS: ACETAMINOPHEN 325 MG TABLET PEG SCH (08:56)
[2019-05-27] MEDS: ASPIRIN CHEW 81 MG TABLET PO SCH (08:56)
[2019-05-27] MEDS: BRIMONIDINE 0.1% OPH SOLN 5 ML BOTTLE BOTH EYES SCH ×2 (08:58→23:25)
[2019-05-27] MEDS: amLODIPine 10 MG TABLET PEG SCH (08:59)
[2019-05-27] MEDS: MENTHOL/ZINC OXIDE OINT 71 GM JAR TOP SCH ×2 (08:59→23:24)
[2019-05-27] MEDS ORDERED: SODIUM CHLORIDE 0.9% 1,000 ML IV PRN ×3 (20:19→21:00)
[2019-05-27 20:40] LABS: Basophils % 0.1 % (0.0-0.8); Immature Granulocytes % 1.4 %; Immature Granulocytes Absolute 0.18 #; Lymphocytes # 1.5 10*3/uL (1.4-4.0); Lymphocytes % 11.2 % (21.2-54.2); Mean Platelet Volume 11.2 FL (9.6-12.0); Neutrophils % 81.3 % (38.7-73.9); Platelet Count 296 T/CUMM (130-400); Red Blood Count 1.93 MC/CUMM (3.8-5.5); Red Cell Distribution Width 15.7 % (9.3-17.3); White Blood Count 13.2 T/CUMM (4-12)
[2019-05-27 20:46] LABS: Hemoglobin 5.2 GM/DL (14.0-18.0)
[2019-05-27 20:47] LABS: Hematocrit 16.8 VOL% (42.0-52.0)
[2019-05-27] MEDS: DONEPEZIL 10 MG TABLET PEG SCH (23:24)
[2019-05-27] MEDS: PANTOPRAZOLE 40 MG VIAL IV SCH (23:24)
[2019-05-27] MEDS: CITALOPRAM 20 MG TABLET PEG SCH (23:25)
[2019-05-27] MEDS: ATORVASTATIN 80 MG TABLET PEG SCH (23:25)
[2019-05-27] MEDS: MIRTAZAPINE 15 MG TABLET PEG SCH (23:25)
[2019-05-27] MEDS ORDERED: POLYETHYLENE GLYCOL 3350/ELECTROLYTES 4,000 ML BOTTLE PO ONE (23:30)
[2019-05-27] MEDS: INSULIN GLARGINE 100 UNIT/ML SUBCUT SCH (23:36)
[2019-05-28] MEDS: ALBUTEROL/IPRATROPIUM 3 ML NEB RESP TX SCH ×6 (00:03→19:38)
[2019-05-28] MEDS ORDERED: SODIUM CHLORIDE 0.9% 500 ML IV ONE (01:35)
[2019-05-28] MEDS ORDERED: DOPamine 800 MG/250 ML PREMIX IV PRN (01:35)
[2019-05-28 03:29] LABS: Basophils % 0.1 % (0.0-0.8); Hematocrit 24.9 VOL% (42.0-52.0); Hemoglobin 8.3 GM/DL (14.0-18.0); Immature Granulocytes % 1.5 %; Immature Granulocytes Absolute 0.21 #; Lymphocytes # 1.7 10*3/uL (1.4-4.0); Lymphocytes % 11.6 % (21.2-54.2); Mean Corpuscular HGB Conc 33.3 GM/DL (32-36); Mean Corpuscular Volume 85.6 FL (87-102); Mean Platelet Volume 11.6 FL (9.6-12.0); Monocytes % 4.6 % (1.7-12.7); Neutrophils % 82.2 % (38.7-73.9); Platelet Count 218 T/CUMM (130-400); Red Blood Count 2.91 MC/CUMM (3.8-5.5); Red Cell Distribution Width 14.9 % (9.3-17.3); White Blood Count 14.4 T/CUMM (4-12)
[2019-05-28 03:39] LABS: INR 1.2; PT Patient Result 12.7 SECS (9.6-12.2); Partial Thromboplastin Time 23.3 SECS (20.8-36.0)
[2019-05-28 03:48] LABS: Alanine Aminotransferase 26 U/L (16-61); Albumin 1.2 G/DL (3.4-5.0); Alkaline Phosphatase 83 U/L (45-117); Aspartate Amino Transferase 47 U/L (0-37); Bilirubin,Total < 0.39 MG/DL (0.2-1.0); Blood Urea Nitrogen 115 MG/DL (7-18); Calcium 6.1 MG/DL (8.5-10.1); Estimated Glom Filtration Rate 20 ML/MIN; Glucose 310 MG/DL (74-106); Osmolality,Calculated 325.5 MOS/KG (273-304); Total Protein 3.5 G/DL (6.4-8.3)
[2019-05-28 03:54] LABS: Prealbumin 17.9 MG/DL (20-40)
[2019-05-28 04:48] LABS: ABG Base Excess -8.1 MMOL/L (-2.5-2.5); ABG HCO3 16.2 MMOL/L (20-26); ABG PCO2 28.9 MM HG (35-48); ABG PH 7.367 (7.35-7.45); ABG PO2 135.8 MM HG (80-95); ABG TCO2 17.1 MMOL/L (23-27)
[2019-05-28 04:49] LABS: Allen Test Positive; Pt O2 Delivery Device Ventilator
[2019-05-28] MEDS: methylPREDNISolone SOD SUC 40 MG/1 ML VIAL IV SCH ×3 (07:10→23:51)
[2019-05-28] MEDS: INSULIN REGULAR 100 UNIT/ML SUBCUT SCH ×4 (07:10→23:51)
[2019-05-28] MEDS: BUDESONIDE 0.5 MG/2 ML NEB RESP TX SCH ×2 (07:12→19:38)
[2019-05-28 07:27] LABS: Basophils % 0.1 % (0.0-0.8); Hematocrit 21.2 VOL% (42.0-52.0); Hemoglobin 7.1 GM/DL (14.0-18.0); Immature Granulocytes % 1.4 %; Immature Granulocytes Absolute 0.19 #; Lymphocytes % 15.2 % (21.2-54.2); Mean Corpuscular HGB Conc 33.5 GM/DL (32-36); Mean Corpuscular Volume 86.2 FL (87-102); Monocytes % 7.4 % (1.7-12.7); NRBC # 0.08 10*3/uL; Neutrophils % 75.9 % (38.7-73.9); Platelet Count 203 T/CUMM (130-400); Red Blood Count 2.46 MC/CUMM (3.8-5.5); Red Cell Distribution Width 14.8 % (9.3-17.3); White Blood Count 13.4 T/CUMM (4-12)
[2019-05-28] MEDS ORDERED: SODIUM CHLORIDE 0.9% 1,000 ML IV PRN (07:59)
[2019-05-28] MEDS ORDERED: EPINEPHrine 1 MG/ML VIAL ONE (09:32)
[2019-05-28] MEDS: amLODIPine 10 MG TABLET PEG SCH (10:12)
[2019-05-28] MEDS: INSULIN NPH 100 UNIT/ML SUBCUT SCH (10:12)
[2019-05-28] MEDS: SODIUM POLYSTYRENE SULFATE 15 GM/60 ML BOTTLE PEG SCH ×2 (10:13→18:57)
[2019-05-28] MEDS: METOPROLOL TARTRATE 25 MG TABLET PEG SCH ×2 (10:13→21:23)
[2019-05-28] MEDS: FEBUXOSTAT 80 MG TABLET PEG SCH (10:13)
[2019-05-28] MEDS: ACETAMINOPHEN 325 MG TABLET PEG SCH (10:13)
[2019-05-28] MEDS: PANTOPRAZOLE 40 MG VIAL IV SCH ×2 (10:13→21:22)
[2019-05-28] MEDS: BRIMONIDINE 0.1% OPH SOLN 5 ML BOTTLE BOTH EYES SCH ×2 (10:19→21:25)
[2019-05-28] MEDS: MENTHOL/ZINC OXIDE OINT 71 GM JAR TOP SCH ×2 (10:19→21:24)
[2019-05-28] MEDS ORDERED: CALCIUM GLUCONATE 2,000 MG in SODIUM CHLORIDE 0.9% 100 ML IV ONE (13:30)
[2019-05-28] MEDS ORDERED: INSULIN GLARGINE 100 UNIT/ML SUBCUT ONE ×2 (14:44→21:00)
[2019-05-28 16:59] LABS: Basophils % 0.1 % (0.0-0.8); Hematocrit 32.4 VOL% (42.0-52.0); Hemoglobin 10.6 GM/DL (14.0-18.0); Immature Granulocytes % 1.3 %; Immature Granulocytes Absolute 0.31 #; Lymphocytes # 2.9 10*3/uL (1.4-4.0); Lymphocytes % 12.3 % (21.2-54.2); Mean Corpuscular HGB Conc 32.7 GM/DL (32-36); Mean Platelet Volume 12.4 FL (9.6-12.0); Monocytes % 9.6 % (1.7-12.7); NRBC # 0.18 10*3/uL; Neutrophils % 76.7 % (38.7-73.9); Platelet Count 189 T/CUMM (130-400); Red Blood Count 3.56 MC/CUMM (3.8-5.5); Red Cell Distribution Width 14.4 % (9.3-17.3); White Blood Count 23.2 T/CUMM (4-12)
[2019-05-28 17:06] LABS: Calcium 6.8 MG/DL (8.5-10.1); Osmolality,Calculated 326.7 MOS/KG (273-304)
[2019-05-28] MEDS ORDERED: ALBUTEROL NEB SOLN 5 MG/ML 20 ML/BOTTLE CONT NEB ONE (17:13)
[2019-05-28 17:22] LABS: Band Neutrophils 4 % (0-10); Burr Cells 1+; Lymphocytes 12 % (20-55); Poikilocytosis 1+; Segmented Neutrophils 77 % (50-85); Total Cells Counted 100
[2019-05-28 17:23] LABS: Anisocytosis Slight; Macrocytosis Slight; Microcytosis Slight; Platelet Estimate Normal; Polychromasia Slight
[2019-05-28 19:07] VITALS: BP 112/90
[2019-05-28] MEDS ORDERED: SODIUM POLYSTYRENE SULFATE 15 GM/60 ML BOTTLE PO ONE (21:00)
[2019-05-28] MEDS ORDERED: INSULIN GLARGINE 100 UNIT/ML SUBCUT SCH (21:00)
[2019-05-28] MEDS: CITALOPRAM 20 MG TABLET PEG SCH (21:22)
[2019-05-28] MEDS: DONEPEZIL 10 MG TABLET PEG SCH (21:23)
[2019-05-28] MEDS: MIRTAZAPINE 15 MG TABLET PEG SCH (21:24)
[2019-05-28] MEDS: ATORVASTATIN 80 MG TABLET PEG SCH (21:24)
[2019-05-29] MEDS: ALBUTEROL/IPRATROPIUM 3 ML NEB RESP TX SCH ×4 (00:14→11:19)
[2019-05-29 03:51] LABS: ABG Base Excess -16.7 MMOL/L (-2.5-2.5); ABG HCO3 11.8 MMOL/L (20-26); ABG Oxygen Saturation 99.6 % (95-100); ABG PH 7.266 (7.35-7.45); ABG TCO2 8.5 MMOL/L (23-27)
[2019-05-29 03:58] LABS: Basophils % 0.1 % (0.0-0.8); Hematocrit 26.9 VOL% (42.0-52.0); Hemoglobin 9.3 GM/DL (14.0-18.0); Immature Granulocytes % 1.8 %; Immature Granulocytes Absolute 0.57 #; Lymphocytes # 2.5 10*3/uL (1.4-4.0); Lymphocytes % 8.2 % (21.2-54.2); Mean Corpuscular HGB Conc 34.6 GM/DL (32-36); Mean Corpuscular Volume 89.7 FL (87-102); Mean Platelet Volume 12.8 FL (9.6-12.0); Monocytes % 9.9 % (1.7-12.7); NRBC # 0.29 10*3/uL; Platelet Count 196 T/CUMM (130-400); Red Cell Distribution Width 14.8 % (9.3-17.3); White Blood Count 30.9 T/CUMM (4-12)
[2019-05-29 04:03] LABS: ABG PCO2 20.1 MM HG (35-48)
[2019-05-29 04:19] LABS: Calcium 6.2 MG/DL (8.5-10.1)
[2019-05-29 04:29] LABS: Burr Cells Slight; Hypochromasia Slight; Ovalocytes Slight; Platelet Estimate Adequate
[2019-05-29 04:30] LABS: Microcytosis Slight
[2019-05-29] MEDS: INSULIN REGULAR 100 UNIT/ML SUBCUT SCH ×2 (06:12→14:05)
[2019-05-29] MEDS: methylPREDNISolone SOD SUC 40 MG/1 ML VIAL IV SCH (06:52)
[2019-05-29] MEDS: BUDESONIDE 0.5 MG/2 ML NEB RESP TX SCH (08:08)
[2019-05-29] MEDS ORDERED: DEXTROSE 50% 25 GM/50 ML VIAL IV ONE (08:25)
[2019-05-29] MEDS ORDERED: INSULIN REGULAR 100 UNIT/ML IV ONE (08:26)
[2019-05-29] MEDS ORDERED: NOREPINEPHRINE 8 MG in SODIUM CHLORIDE 0.9% 242 ML IV SCH (08:30)
[2019-05-29] MEDS ORDERED: DEXTROSE 10% 25 GM/250 ML BAG IV ONE (08:30)
[2019-05-29] MEDS ORDERED: PHENYLEPHRINE DRIP 40 MG/250 ML PREMIX IV SCH (08:30)
[2019-05-29] MEDS ORDERED: NOREPINEPHRINE 4 MG/4 ML VIAL IV ONE (08:31)
[2019-05-29] MEDS: METOPROLOL TARTRATE 25 MG TABLET PEG SCH (08:44)
[2019-05-29] MEDS ORDERED: DEXTROSE 10% 250 ML IV ONE (08:53)
[2019-05-29] MEDS ORDERED: NOREPINEPHRINE 16 MG in SODIUM CHLORIDE 0.9% 242 ML IV PRN (09:00)
[2019-05-29] MEDS ORDERED: CALCIUM GLUCONATE 2,000 MG in SODIUM CHLORIDE 0.9% 100 ML IV ONE (09:00)
[2019-05-29] MEDS: MENTHOL/ZINC OXIDE OINT 71 GM JAR TOP SCH (09:28)
[2019-05-29] MEDS: BRIMONIDINE 0.1% OPH SOLN 5 ML BOTTLE BOTH EYES SCH (09:28)
[2019-05-29] MEDS: PANTOPRAZOLE 40 MG VIAL IV SCH (09:29)
[2019-05-29] MEDS ORDERED: FUROSEMIDE 40 MG/4 ML VIAL IV SCH (09:30)
[2019-05-29] MEDS ORDERED: ALBUMIN 25% 25 GM in PREMIX 1 EACH IV SCH (09:30)
[2019-05-29] MEDS: ACETAMINOPHEN 325 MG TABLET PEG SCH (09:31)
[2019-05-29] MEDS: FEBUXOSTAT 80 MG TABLET PEG SCH (09:31)
[2019-05-29] MEDS: SCOPOLAMINE 1.5 MG PATCH TRANSDERM SCH (09:54)
[2019-05-29] MEDS ORDERED: SODIUM BICARB INJ 100 MEQ in DEXTROSE 5% NACL 0.22% 1,000 ML IV SCH (10:00)
[2019-05-29] MEDS: amLODIPine 10 MG TABLET PEG SCH (10:47)
[2019-05-29] MEDS ORDERED: LORazepam 2 MG/1 ML VIAL IV ONE (11:32)
[2019-05-29] MEDS ORDERED: MORPHINE 4 MG/1 ML VIAL IV ONE (11:32)
[2019-05-29] MEDS ORDERED: LORazepam 2 MG/1 ML VIAL IV PRN (11:39)
[2019-05-29] MEDS ORDERED: MORPHINE 4 MG/1 ML VIAL IV PRN ×2 (11:40→13:00)
[2019-05-29] MEDS ORDERED: LORazepam 2 MG/1 ML VIAL ONE ×2 (11:48→12:40)
[2019-05-29] MEDS ORDERED: SODIUM CHLORIDE 23.4% CONC INJ 38.5 MEQ, SODIUM BICARB INJ 150 MEQ in STERILE WATER INJ... IV SCH (12:00)
[2019-05-29] MEDS ORDERED: INSULIN GLARGINE 100 UNIT/ML SUBCUT ONE (14:38)
[2019-05-29] MEDS ORDERED: INSULIN GLARGINE 100 UNIT/ML SUBCUT SCH (21:00)
== END 2019-05-29 15:10 | disposition expired | DRG 640 ==
LOC: EDUNIT# → EDBD → N.ED 10:07 → SUATTDRO 12:26 → N.EDINP 12:26 → N.TELES 13:00 → N.CC 05-16 09:12
PROVIDERS: ADMIT Internal Medicine Cardiovascular Disease; ATTEND Family Medicine